=== PATIENT | male | born 1950 | race Caucasian/White ===

== ENCOUNTER 2017-05-24 20:44 | Inpatient (IN) ==
[2017-05-25] MEDS ORDERED: Naloxone 0.4 MG/ML INJ IVP PRN ×2 (00:15)
[2017-05-25] MEDS ORDERED: Ondansetron 4 MG/2 ML VIAL IVP PRN (00:15)
--- NOTE | 2017-05-25 00:39 | Internal Med History&Physical ---
<Ty Vazquez - Last Filed: 05/25/17 01:27> Date of Encounter: 05/25/17 Time of Encounter: 00:35 Assessment and Plan (1) Abdominal pain Current visit: Yes Status: Acute RUQ and epigastric abdominal pain. Likely secondary to biliary colic caused by cholelithiasis. Attempting to obtain CT images from [facility]. US gallbladder pending to determine pericholic fluid and/or cholecystitis. Empiric clindamycin and flagy. NPO on mIVF and protonix. General surgery consulted. Qualifiers: Abdominal location: right upper quadrant Qualified Code(s): R10.11 - Right upper quadrant pain (2) Cholelithiasis Current visit: Yes Status: Acute Per CT report from [facility]. Plan as above. Qualifiers: Cholelithiasis location: gallbladder Cholecystitis acuity: unspecified acuity Qualified Code(s): K80.01 - Calculus of gallbladder with acute cholecystitis with obstruction (3) Biliary colic Current visit: Yes Status: Acute Likely secondary to cholelithiasis. Plan as above. Internal Medicine - H&P: HPI Admitted From: Hospital to Hospital Transfer History of present illness: Mr. Dotson is a 66 year old male, presents from [facility] emergency department for continued evaluation of abdominal pain. Onset 8 months ago and intermittent sharp stabbing located in the epigastrum and sometimes right upper abdominal quadrant. Worse with certain meals...notable milk. Patient just finished a [employer] [place] and his symptoms have been constant for the past week. Asociated with nausea, anorexia. He was evaluated by the cruise ship physician and treated for UTI (discolored urine, no urinary symptoms) with IV levaquin x2 days with PO levaquin thereafter. He also received opioid analgesia on the cruise ship. No vomiting, diarrhea, constipation, melena, hematochezia, urinary symptoms. No chest pain, palpitations, dyspnea, diaphoresis, unusual back pain, cough. No fever or chills. No past abdominal surgical history. No hx CAD or ACS. PMH: Hypertension, chronic back pain. Internal Medicine - H&P: Meds Amlodipine Besylate/Benazepril [Lotrel 10-20 mg Capsule] 1 each PO DAILY [History] Meloxicam 15 mg PO DAILY 05/25/17 [History] Omeprazole [PriLOSEC] 20 mg PO DAILY 05/25/17 [History] 3 Allergy/AdvReac Type Severity Reaction Status Date / Time Penicillins Allergy Mild Rash Verified 05/25/17 00:38 All Systems PM: A 10-system review of systems was performed and is negative for pertinent findings except as documented above in the HPI. - Constitutional Constitutional: anorexia, no chills, no fatigue, no fever(s), no lethargy, no malaise - Cardiovascular Cardiovascular ROS IM: no chest pain, no diaphoresis, no dyspnea, no edema, no lightheadedness, no palpitations - Respiratory Respiratory: no cough, no dyspnea, no hemoptysis, no wheezing, no pain on inspiration, no pain with cough - Gastrointestinal Gastrointestinal: abdominal pain, nausea, no belching, no bloating, no change in bowel habits, no change in stool character, no coffee ground emesis, no constipation, no cramping, no diarrhea, no hematochezia, no loose stools, no vomiting - Genitourinary Genitourinary ROS male: no difficulty urinating, no dysuria, no flank pain, no urinary frequency, no urinary hesitancy, no urinary urgency - Musculoskeletal Musculoskeletal ROS IM: back pain (chronic), no muscle weakness, no numbness, no tingling - Integumentary Integumentary IM: no unusual bruising - Neurological Neurological ROS: no abnormal gait - Constitutional Vitals: Temp Pulse Resp BP Pulse Ox 98.6 F 97 16 131/97 96 05/24/17 23:17 05/24/17 23:17 05/24/17 23:17 05/24/17 23:17 05/24/17 23:17 General appearance: Present: A&O X 3, pleasant, no acute distress, obese - Head Head exam: Present: normal inspection - Eye Eye exam: Present: EOMI, normal appearance, PERRL, sclera anicteric - ENT ENT exam: Present: mucous membranes moist - Neck Neck exam general surgery: Present: normal inspection, supple - Respiratory Respiratory exam: Present: CTAB. Absent: accessory muscle use, respiratory distress, wheezes - Cardiovascular Cardiovascular exam: Present: RRR. Absent: clicks, diastolic murmur, gallop, rubs, systolic murmur - GI/Abdominal GI/Abdominal exam: Present: normal bowel sounds, soft, tenderness. Absent: firm , guarding, rebound Additional comments: RUQ and epigastrum - Expanded GI/Abdominal Exam GI/Abdominal exam expanded: Absent: Pop's sign, Rovsing's sign, tenderness at McBurney's Point - Extremities Exam Extremities exam: Present: normal capillary refill - Neurological Exam Neurological exam: Present: alert, normal gait, oriented X3, no focal deficits. Absent: facial droop - Psychiatric Psychiatric exam: Present: normal affect, normal mood Internal Med - H&P Results - Labs CBC & Chem 7: 05/25/17 00:39 05/25/17 00:39 Labs: Per documentation from [facility]: CT report of abd/pelvis without IV contrast: "Pulmonary granulomatous scarring." (on lower thorax.) "There is cholelithiasis. It is difficult to determine if ther emay be edema surrounding the gallbladder. Clinical correlation is recommended as to whether the patient might benefit from further evaluation with ultrasound. No ductal dilation." "There is mild bilateral perinephric stranding which is nonspecific. No obstructing stones." "There are degenerative changes of the spine. No acute fracture. No dislocation. " "There is a fat containing umbilical hernia." (attempting to obtain actual CT images) Serum hematology: WBC 15.1 Hgb 13.5 Hct 39.3 PLT 277 Serum chemistry: Na 135 K 3.4 Cl 98 BUN 21 Cr 1.47 eGFR 48.17 Hepatic panel: Bili total 1.2 Bili direct 0.7 Protein total 6.5 albumin 2.7 alk phosphatase 168 AST 60 ALT 75 UA: pH 5.5 specific gravity 1.020 Glu neg Ketones trace Biliruben moderate blood trace urobilinogen 4.0 nitrites neg leuk esterase neg cloudy yellow WBC 3-5 RBC 3-5 epithelial 0-2 bacteria 1+ Urine tox screen: cannabinoids neg phencyclidine neg cocaine neg methamphetaime neg opiates pos amphetamines neg benzodiazepines neg TCA neg methadone neg barbiturates neg oxycodone neg propoxyphene neg Influenza screen: Flu A&B (-) <Antonio Araujo P - Last Filed: 05/25/17 03:03> Date of Encounter: 05/25/17 Internal Medicine - H&P: HPI History of present illness: Mr. Dotson is a 66 year old male All Systems PM: A 10-system review of systems was performed and is negative for pertinent findings except as documented above in the HPI. - Constitutional Vitals: Temp Pulse Resp BP Pulse Ox 98.6 F 97 16 131/97 96 05/24/17 23:17 05/24/17 23:17 05/24/17 23:17 05/24/17 23:17 05/24/17 23:17 Internal Med - H&P Results - Labs CBC & Chem 7: 05/25/17 00:39 05/25/17 00:39 Labs: Short CBC 05/25/17 Range/Units 00:39 WBC 19.3 H (4.3-11.1) K/mcL Hgb 11.3 L (12.9-16.9) g/dL Hct 34.1 L (37.5-50.1) % Plt Count 249 (140-400) K/mcL Neutrophils # 16.5 H (1.6-8.9) K/mcL BMP 05/25/17 00:39 Sodium 134 L Potassium 3.8 Chloride 105 Carbon Dioxide 21 L BUN 18 Creatinine 1.13 Glucose 114 H Calcium 8.2 L Liver Function 05/25/17 Range/Units 00:39 Total Bilirubin 0.9 (0.3-1.0) mg/dL Direct Bilirubin 0.4 H (0.0-0.2) mg/dL AST 42 H (13-39) Units/L ALT 50 (7-52) Units/L Alkaline Phosphatase 115 H (34-104) Units/L Albumin 2.9 L (3.5-5.7) g/dL - Attending Attestation I examined this patient and my medical decision-making was reviewed with the Resident Physician. I agree with the documented findings, disposition and treatment plan as described except to the extent set forth below. I agree with plan presented by resident Spoke with Dr Garcia ( surgery) Need CT scan of abdomen on CD to evaluate.
[2017-05-25 01:01] LABS: Basophils # 0.1 K/mcL (0.0-0.2); Basophils % 0.3 %; Eosinophils % 0.1 %; Hematocrit 34.1 % (37.5-50.1); Hemoglobin 11.3 g/dL (12.9-16.9); Immature Granulocytes % 0.8 % (0-4); Lymphocytes # 1.1 K/mcL (0.6-4.6); Lymphocytes % 5.6 %; Mean Corpuscular HGB Conc 33.1 g/dL (31.6-35.5); Mean Corpuscular Hemoglobin 28.8 pg (28.0-33.3); Monocytes # 1.6 K/mcL (0.0-1.3); Monocytes % 8.1 %; Neutrophils # 16.5 K/mcL (1.6-8.9); Platelet Count 249 K/mcL (140-400); Red Blood Count 3.92 M/mcL (4.19-5.50); Red Cell Distribution Width 13.6 % (11.5-14.5); Segmented Neutrophils % 85.1 %
[2017-05-25 01:06] LABS: INR 1.5; Prothrombin Time 16.3 Seconds (9.4-12.1)
[2017-05-25] MEDS: 0.9 % Sodium Chloride w KCl 20 MEQ/1,000 ML MLS IVC SCH ×2 (01:07→09:31)
[2017-05-25 01:16] LABS: Alanine Aminotransferase 50 Units/L (7-52); Albumin 2.9 g/dL (3.5-5.7); Albumin/Globulin Ratio 0.9 (1.1-2.2); Alkaline Phosphatase 115 Units/L (34-104); Amylase 17 Units/L (29-103); Aspartate Amino Transferase 42 Units/L (13-39); BUN/Creatinine Ratio 16 (6-26); Bilirubin,Direct 0.4 mg/dL (0.0-0.2); Bilirubin,Indirect 0.5 mg/dL (0.0-1.2); Bilirubin,Total 0.9 mg/dL (0.3-1.0); Blood Urea Nitrogen 18 mg/dL (8-23); C-Reactive Protein 263 mg/L (Less than 10); Calcium 8.2 mg/dL (8.6-10.3); Carbon Dioxide 21 mEq/L (23-29); Chloride 105 mEq/L (98-107); Globulin 3.1 g/dL (2.4-3.5); Glucose 114 mg/dL (70-105); Lipase 6 Units/L (11-82); Magnesium 1.7 mg/dL (1.6-2.6); Osmolality,Calculated 281 (280-300); Potassium 3.8 mEq/L (3.5-5.1); Sodium 134 mEq/L (136-145); eGFR For African Americans > 60 (> 60); eGFR For Non-African Americans > 60 (> 60)
[2017-05-25] MEDS: MetroNIDAZOLE 500 MG/100 ML 500 MG/100 ML BAG IVPB SCH ×3 (08:44→23:33)
[2017-05-25] MEDS: Pantoprazole 40 MG VIAL IVP SCH (08:44)
[2017-05-25] MEDS: OXYCODONE Oral CONC 10 MG/0.5 ML ORAL.SYG SL PRN (10:10)
[2017-05-25 12:09] LABS: % Iron Saturation 14 % (20-55); Iron 28 mcg/dL (65-175); Transferrin 141 mg/dL (203-362)
--- NOTE | 2017-05-25 13:48 | General Surgery Consult Note ---
Date of Encounter: 05/25/17 Time of Encounter: 13:45 Assessment and Plan (1) Abdominal pain Current Visit: Yes Status: Acute 66M with abdominal pain that sounds consistent with biliary colic; HDS NPO IVF abd US pending results will determine need for cholecystectomy; Qualifiers: Abdominal location: right upper quadrant Qualified Code(s): R10.11 - Right upper quadrant pain History of Present Illness Consult date: 05/25/17 Reason for consult: abdominal pain Requesting physician: Antonio Araujo History of present illness: 66M h/o HTN who presents with post prandial RUQ pain with associated nausea, vomiting, anorexia. He states the pain has been on going, but over the last week, while on a cruise, his pain has gotten worse. It was originally localized to the epigastric region after eating meals that are greasy, meat and starched based with fatty substance. He stated that it later radiated to his Right side and back. He also reports temperatures as high as 102. He was transferred from an OSH for evaluation at [place]. Past Med Surg Social Fam HX - Past Medical History Medical history: GERD, hypertension Psychiatric history: no psych history - Past Surgical History Surgical History: arthroscopy, orthopedic, other - Social History Smoking Status: Never smoker Smokeless Tobacco Status: No Alcohol use: none Drug use: none - Additional Family History Additional family history: non contributory Medications and Allergies Amlodipine Besylate/Benazepril [Lotrel 10-20 mg Capsule] 1 cap PO DAILY [History] Meloxicam 15 mg PO DAILY 05/25/17 [History] Omeprazole [PriLOSEC] 20 mg PO DAILY 05/25/17 [History] 3 Allergy/AdvReac Type Severity Reaction Status Date / Time Penicillins Allergy Mild Rash Verified 05/25/17 00:38 Review of Systems All systems PM: A 10-system review of systems was performed and is negative for pertinent findings except as documented above in the HPI. General Surgery Exam Initial Vital Signs Temp Pulse Resp BP Pulse Ox 98.6 F 97 16 131/97 96 05/24/17 23:17 05/24/17 23:17 05/24/17 23:17 05/24/17 23:17 05/24/17 23:17 - General physical appearance no distress - Eyes other (no scleral icterus) - ENT normocephalic - Neck no lymphadectomy - Respiratory normal expansion, normal respiratory effort - Cardiovascular Cardiovascular exam: Present: RRR - Abdomen Abdomen general surgery: Present: soft, non tender - Integumentary Integumentary general surgery: Present: warm and dry - Neurologic Present: CN 2-12 grossly intact - Psychiatric Psychiatric general surgery: Present: A&Ox3 Exam Initial Vital Signs Temp Pulse Resp BP Pulse Ox 98.6 F 97 16 131/97 96 05/24/17 23:17 05/24/17 23:17 05/24/17 23:17 05/24/17 23:17 05/24/17 23:17 Results - Labs 05/25/17 00:39 05/25/17 00:39 Abnormal lab results WBC 19.3 K/mcL (4.3-11.1) H 05/25/17 00:39 RBC 3.92 M/mcL (4.19-5.50) L 05/25/17 00:39 Hgb 11.3 g/dL (12.9-16.9) L 05/25/17 00:39 Hct 34.1 % (37.5-50.1) L 05/25/17 00:39 Neutrophils # 16.5 K/mcL (1.6-8.9) H 05/25/17 00:39 Monocytes # 1.6 K/mcL (0.0-1.3) H 05/25/17 00:39 PT 16.3 Seconds (9.4-12.1) H 05/25/17 00:39 Sodium 134 mEq/L (136-145) L 05/25/17 00:39 Carbon Dioxide 21 mEq/L (23-29) L 05/25/17 00:39 Glucose 114 mg/dL (70-105) H 05/25/17 00:39 Calcium 8.2 mg/dL (8.6-10.3) L 05/25/17 00:39 Iron 28 mcg/dL (65-175) L 05/25/17 09:16 % Saturation 14 % (20-55) L 05/25/17 09:16 Transferrin 141 mg/dL (203-362) L 05/25/17 09:16 Direct Bilirubin 0.4 mg/dL (0.0-0.2) H 05/25/17 00:39 AST 42 Units/L (13-39) H 05/25/17 00:39 Alkaline Phosphatase 115 Units/L (34-104) H 05/25/17 00:39 C-Reactive Protein 263 mg/L (Less than 10) H 05/25/17 00:39 Serum Total Protein 6.0 g/dL (6.4-8.9) L 05/25/17 00:39 Albumin 2.9 g/dL (3.5-5.7) L 05/25/17 00:39 Albumin/Globulin Ratio 0.9 (1.1-2.2) L 05/25/17 00:39 Amylase 17 Units/L (29-103) L 05/25/17 00:39 Lipase 6 Units/L (11-82) L 05/25/17 00:39 Diabetes panel 05/25/17 Range/Units 00:39 Sodium 134 L (136-145) mEq/L Potassium 3.8 (3.5-5.1) mEq/L Chloride 105 (98-107) mEq/L Carbon Dioxide 21 L (23-29) mEq/L BUN 18 (8-23) mg/dL Creatinine 1.13 (0.70-1.30) mg/dL Glucose 114 H (70-105) mg/dL Calcium 8.2 L (8.6-10.3) mg/dL AST 42 H (13-39) Units/L ALT 50 (7-52) Units/L Alkaline Phosphatase 115 H (34-104) Units/L Albumin 2.9 L (3.5-5.7) g/dL Calcium panel 05/25/17 Range/Units 00:39 Calcium 8.2 L (8.6-10.3) mg/dL Albumin 2.9 L (3.5-5.7) g/dL Pituitary panel 05/25/17 Range/Units 00:39 Sodium 134 L (136-145) mEq/L Potassium 3.8 (3.5-5.1) mEq/L Chloride 105 (98-107) mEq/L Carbon Dioxide 21 L (23-29) mEq/L BUN 18 (8-23) mg/dL Creatinine 1.13 (0.70-1.30) mg/dL Glucose 114 H (70-105) mg/dL Calcium 8.2 L (8.6-10.3) mg/dL Adrenal panel 05/25/17 Range/Units 00:39 Sodium 134 L (136-145) mEq/L Potassium 3.8 (3.5-5.1) mEq/L Chloride 105 (98-107) mEq/L Carbon Dioxide 21 L (23-29) mEq/L BUN 18 (8-23) mg/dL Creatinine 1.13 (0.70-1.30) mg/dL Glucose 114 H (70-105) mg/dL Calcium 8.2 L (8.6-10.3) mg/dL Total Bilirubin 0.9 (0.3-1.0) mg/dL AST 42 H (13-39) Units/L ALT 50 (7-52) Units/L Alkaline Phosphatase 115 H (34-104) Units/L Albumin 2.9 L (3.5-5.7) g/dL All other labs normal. Consult Discharge Plan - Plan Referrals: Lissette Aguirre [Primary Care Provider] - Irene Howe DO [Family Provider] -
[2017-05-25 13:51] LABS: Bilirubin,Urine Negative (Negative); Blood,Urine Small (Negative); Clarity,Urine Clear (Clear); Color,Urine Yellow (Yellow); Glucose,Urine (UA) Normal (Normal); Ketones,Urine Negative (Negative); Leukocyte Esterase,Urine Negative (Negative); Nitrite,Urine Negative (Negative); Protein,Urine Trace mg/dL (Neg-Trace); Specific Gravity,Urine 1.024 (1.010-1.025); Urobilinogen,Urine Normal (Normal)
[2017-05-25 13:56] LABS: Bacteria,Urine None Seen per hpf (None-Few); Hyaline Casts,Urine None Seen per lpf (None-Few); RBC,Urine 15-30 per hpf (0-3); Squamous Epithelial Cell,Urine Many per lpf (None-Few)
--- NOTE | 2017-05-25 16:54 | Event Note ---
Date of Encounter: 05/25/17 Time of Encounter: 11:00 Patient presented from outside hospital with abdominal pain found to have cholelithiasis Surgery consulted with recommendations for right upper quadrant ultrasound and CT of the abdomen to rule out cholecystitis and need for cholecystectomy
[2017-05-25] MEDS: *HR* Heparin 5,000 UNIT/ML VIAL SQ SCH (20:20)
[2017-05-25] MEDS: Ketorolac 15 MG/ML VIAL IVP PRN (20:24)
[2017-05-25] MEDS: Lisinopril 20 MG TABLET PO SCH (22:26)
[2017-05-25] MEDS: amLODIPine 5 MG TABLET PO SCH (22:26)
[2017-05-26] MEDS: Acetaminophen 325 MG TABLET PO PRN ×2 (03:58→21:09)
[2017-05-26] MEDS: *HR* Heparin 5,000 UNIT/ML VIAL SQ SCH ×3 (05:18→21:09)
[2017-05-26] MEDS: Pantoprazole 40 MG VIAL IVP SCH (07:41)
[2017-05-26] MEDS: MetroNIDAZOLE 500 MG/100 ML 500 MG/100 ML BAG IVPB SCH ×2 (07:41→17:05)
--- NOTE | 2017-05-26 08:06 | General Surgery Progress Note ---
Date of Encounter: 05/26/17 Time of Encounter: 08:03 - Assessment and Plan (1) Abdominal pain Current Visit: Yes Status: Acute 66M with abdominal pain that sounds consistent with biliary colic; HDS; hepatic lesion identified post to gallbladder on imaging diet per primary team; diet as tolerated from surgical standpont IVF: SLIV when tolerating PO cont with abx recommend obtaining reads from CT scan MRI for patient to evaluate liver no acute surgery at present Qualifiers: Abdominal location: right upper quadrant Qualified Code(s): R10.11 - Right upper quadrant pain Subjective Patient reports: no new complaints, feels better, still having pain, pain is less, tolerating liquids well, other (fever overnight; ) Objective Vital Signs - Last 8 Hours Temp Pulse Resp BP Pulse Ox 05/26/17 08:03 98.0 F 82 18 145/89 95 05/26/17 05:59 99.9 F H 05/26/17 03:37 102.1 F H 05/26/17 03:27 102.7 F H 100 17 157/90 94 Intake and Output 05/25/17 05/26/17 05/26/17 23:59 07:59 15:59 Intake Total 1300 / 1300 100 / 100 Output Total 200 / 200 Balance 1100 / 1100 100 / 100 Intake: IV Fluids 1300 / 1300 100 / 100 KCl 20 mEq in 0.9% Sodium 1000 / 1000 Chloride 20 meq In 1,000 ml @ 125 mls/hr IVC .Q8H KATHY Rx#: [id number] Cipro Premix 400 MG/200 ML 400 200 / 200 mg In 200 ml @ 200 mls/hr IVPB Q12HR KATHY Rx#:[id number] Flagyl Premix 500 MG/100 ML 500 100 / 100 100 / 100 mg In 100 ml @ 100 mls/hr IVPB Q8HR KATHY Rx#:[id number] Oral 0 / 0 Output: Urine 200 / 200 Other: Meal Dinner Percent of Meal Consumed 100% - General physical appearance no distress - Eyes other (no scleral icterus) - Respiratory normal expansion, normal respiratory effort - Cardiovascular Cardiovascular exam: Present: RRR - Abdomen Abdomen: Present: soft, tender (decreased tenderness per patient; no tenderness on my exam) - Neurologic CN 2-12 grossly intact - Psychiatric oriented to time, oriented to person, oriented to place - Labs 05/25/17 00:39 02/18/18 00:39 - Imaging CT scan - abdomen: report reviewed, image reviewed CT Scan - head: report reviewed, image reviewed US - abdomen: report reviewed, image reviewed (all imaging reviewed and interpreted by me in combination with radiology reads) - VTE Documentation of Mechanical Device: Graduated compression elastic hosiery Consult Discharge Plan - Plan Referrals: Lissette Aguirre [Primary Care Provider] - Irene Howe DO [Family Provider] -
[2017-05-26] MEDS ORDERED: *HR* Midazolam HCl 2 MG/2 ML VIAL IVP ONE (14:44)
[2017-05-26] MEDS ORDERED: *HR* FentaNYL (PF) 100 MCG/2 ML VIAL IVP ONE (14:44)
[2017-05-26] MEDS ORDERED: 0.9 % Sodium Chloride 500 ML ONE (15:10)
--- NOTE | 2017-05-26 15:10 | Internal Med Progress Note ---
Date of Encounter: 05/26/17 Time of Encounter: 07:55 - Assessment and plan (1) Abdominal pain Current Visit: Yes Status: Acute Assessment and plan: Right upper quadrant and epigastric abdominal pain for several weeks. Patient recently returned from an 8 day cruise where he had abdominal pain and was ill on his trip. Patient presented to [facility] for abdominal pain and was transferred here for continued evaluation. Gallbladder ultrasound showed a 6.2 cm complex lesion on the liver, MRI was ordered as cholelithiasis with gallbladder wall thickening gallbladder sludge, there is focal wall defect which communicates with a complex collection within the liver and also showed trace ascites. Pt has been taken to IR for drain placement. He is on Flagyl 500mg IV TID and Cefepime 2grams IV every 8 hours. Meets sepsis criteria Continue antibiotics and IVF resuscitation PRN Surgery following Monitor labs and VS NPO, advance slowly Stop IV fluids when tolerating PO Qualifiers: Abdominal location: right upper quadrant Qualified Code(s): R10.11 - Right upper quadrant pain (2) Cholelithiasis Current Visit: Yes Status: Acute Assessment and plan: Per CT from outside hospital and MRI. Dr. Ring has evaluated and will follow along Plan as above. Gallbladder Ultrasound 05/25/17 00:00 IMPRESSION: Findings suggestive of calculus cholecystitis, similar to prior CT. Within the liver adjacent to the gallbladder fossa there is a 6.2 cm complex lesion. Findings are poorly evaluated on ultrasound and outside noncontrast CT. This could represent infection secondary to obstruction of an accessory bile duct, marked hyperemia due to cholecystitis, or less likely intrahepatic extension of a gallbladder mass. The area is considered too masslike and mixed in echogenicity to represent focal fatty sparing. Consider MRI with and without contrast for further evaluation. D/ / Yuniel Peña MD / Yuniel Peña MD Interpreting Provider: Yuniel Peña MD Abdomen MRI 05/25/17 18:41 IMPRESSION: 1. Cholelithiasis with gallbladder wall thickening and gallbladder sludge. Findings are nonspecific for acute cholecystitis; however, there is a focal wall defect within the superior aspect of the gallbladder which communicates with a complex 7.4 x 5.6 x 4.6 cm collection within the liver at the junctions of segment VIII and IV. Findings are the compatible with perforated cholecystitis/gallbladder with associated intrahepatic abscess. 2. Subtle heterogeneity of segment VIII within liver distal to the collection, likely a transhepatic intensity difference. Findings could be also infectious or inflammatory in etiology. 3. Trace ascites. Results were called by Dr. Jeanie Romero MD to Lissette Obrien on 05/26/2017 at 11:48. D/ / 05/26/2017 12:00:27 Jeanie Romero MD / [email or web address] Interpreting Provider: Jeanie Romero MD Qualifiers: Cholelithiasis location: gallbladder Cholecystitis acuity: unspecified acuity Qualified Code(s): K80.01 - Calculus of gallbladder with acute cholecystitis with obstruction (3) Leukocytosis Current Visit: Yes Status: Acute Assessment and plan: Leukocytosis due to intrahepatic abscess and gallbladder wall defect. Continue to monitor labs and vital signs Continue current IV antibiotic regimen. Qualifiers: Leukocytosis type: unspecified Qualified Code(s): D72.829 - Elevated white blood cell count, unspecified (4) Sepsis Current Visit: Yes Status: Acute Assessment and plan: Patient presented with leukocytosis, unknown source of infection liver abscess, patient has been febrile with MAXIMUM TEMPERATURE 102.7, tachycardia. Fever and tachycardia have resolved. Patient is being treated with cefepime 2 g every 8 hours and Flagyl 500 mg IV every 8 hours. Blood cultures and lactic were not drawn in the ER, patient has been given IV antibiotics. Lactic is ordered and pending. Patient has been normotensive and has been getting IV fluids at 125 mL's per hour. Continue to monitor vital signs and patient condition Continue IV antibiotics as above Lactic ordered and pending IV fluid resuscitation when necessary Qualifiers: Sepsis type: sepsis due to unspecified organism Qualified Code(s): A41.9 - Sepsis, unspecified organism (5) DVT prophylaxis Current Visit: Yes Status: Acute Assessment and plan: Heparin subcutaneous every 8 hours - Time Spent With Patient less than 15 minutes - Subjective Interval history: Patient was assessed and 0755 AM, at bedside. Patient reported some nausea , pain was controlled. Abdomen is rounded and tender to palpation. Patient was evaluated by surgery, I discussed MRI results with patient, he has been taken to IR for drain placement. He denies chest pain or shortness of breath. He denies headache, vomiting or diarrhea. - Constitutional Vitals: Temp Pulse Resp BP Pulse Ox 98.6 F 89 20 167/81 98 05/26/17 11:55 05/26/17 11:55 05/26/17 11:55 05/26/17 11:55 05/26/17 11:55 General appearance: Present: cooperative, A&O X 3, pleasant, no acute distress, obese, answers questions appropriately - Head Head exam: Present: atraumatic, normal inspection, normocephalic - Eye Eye exam: Present: normal appearance, conjuntiva pink, sclera anicteric - Neck Neck exam general surgery: Present: normal inspection, supple, trachea midline. Absent: lymphadenopathy, tenderness - Respiratory Respiratory exam: Present: CTAB. Absent: accessory muscle use, decreased breath sounds, rales, respiratory distress, rhonchi, wheezes - Cardiovascular Cardiovascular exam: Present: RRR, +S1, +S2. Absent: diastolic murmur, gallop, rubs, systolic murmur - GI/Abdominal GI/Abdominal exam: Present: diminished bowel sounds, distended, normal bowel sounds, soft, tenderness - Extremities Exam Extremities exam: Present: normal capillary refill, normal inspection, warm, radial pulses palpable and symmetrical. Absent: calf tenderness, cyanotic, pedal edema, tenderness - Neurological Exam Neurological exam: Present: alert, oriented X3, no focal deficits. Absent: facial droop, speech deficit - Skin Skin exam: Present: dry, intact, normal color, warm. Absent: rash Internal Medicine: Result - Labs CBC & Chem 7: 05/25/17 00:39 05/25/17 00:39 - ABG Interpretation ABG results: PT/INR, D-dimer PT 16.3 Seconds (9.4-12.1) H 05/25/17 00:39 - Impressions Impressions Gallbladder Ultrasound 05/25/17 00:00 IMPRESSION: Findings suggestive of calculus cholecystitis, similar to prior CT. Within the liver adjacent to the gallbladder fossa there is a 6.2 cm complex lesion. Findings are poorly evaluated on ultrasound and outside noncontrast CT. This could represent infection secondary to obstruction of an accessory bile duct, marked hyperemia due to cholecystitis, or less likely intrahepatic extension of a gallbladder mass. The area is considered too masslike and mixed in echogenicity to represent focal fatty sparing. Consider MRI with and without contrast for further evaluation. D/ / Yuniel Peña MD / Yuniel Peña MD Interpreting Provider: Yuniel Peña MD Abdomen MRI 05/25/17 18:41 IMPRESSION: 1. Cholelithiasis with gallbladder wall thickening and gallbladder sludge. Findings are nonspecific for acute cholecystitis; however, there is a focal wall defect within the superior aspect of the gallbladder which communicates with a complex 7.4 x 5.6 x 4.6 cm collection within the liver at the junctions of segment VIII and IV. Findings are the compatible with perforated cholecystitis/gallbladder with associated intrahepatic abscess. 2. Subtle heterogeneity of segment VIII within liver distal to the collection, likely a transhepatic intensity difference. Findings could be also infectious or inflammatory in etiology. 3. Trace ascites. Results were called by Dr. Jeanie Romero MD to Lissette Obrien on 05/26/2017 at 11:48. D/ / 05/26/2017 12:00:27 Jeanie Romero MD / [email or web address] Interpreting Provider: Jeanie Romero MD - VTE Documentation of Mechanical Device: Graduated compression elastic hosiery Consult Discharge Plan - Plan Referrals: Lissette Aguirre [Primary Care Provider] - Irene Howe DO [Family Provider] -
--- NOTE | 2017-05-26 15:58 | Pre-Sedation Evaluation ---
Pre-sedation evaluation - Pre-sedation checklist Date of procedure: 05/26/17 Procedure: drain Recent Vitals: Last Vital Signs Temp 98.6 F 05/26/17 11:55 Pulse 87 05/26/17 15:37 Resp 18 05/26/17 15:37 BP 162/89 05/26/17 15:37 Pulse Ox 99 05/26/17 15:37 H&P (including ROS) documented in medical record: Yes Previous reaction to sedatives/anesthetics: No Dietary Status: NPO after Midnight Airway Assessment: Patient can open mouth completely, TMJ function normal, Micrognathia (under-bite, receding chin) absent, Neck with adequate range of motion ASA Classification *see protocol: CLASS II-Mild systemic disease Plan of Care: Pt appropriate candidate for procedure/moderate/conscious sedation , Risks/benefits of procedure/sedation discussed w/ patient/family, If not NPO; Risk of intake outweiged by necessity to perform procedure
--- NOTE | 2017-05-26 15:59 | IR Procedure Note ---
Date of procedure: 05/26/17 Consent Obtained: Verbal consent, Written consent Timeout: Correct patient and procedure verified, Correct site verified, Time out performed, Skin prep completed Local anesthetic: Lidocaine 1% Indications: hepatic abscess Procedure Performed: 10F drain placement Was there an carpenter's assistant present: No Site/Technique: right hepatic lobe Results/Findings: 70 cc purulent fluid aspirated Estimated blood loss (cc): 1 Complications: None; Tolerated procedure well Post Procedure Treatment Plan: GLORIA bulb drainage with 10 cc flushes q shift Specimen: 70 cc purulent fluid
[2017-05-26] MEDS: OXYCODONE Oral CONC 10 MG/0.5 ML ORAL.SYG SL PRN ×2 (16:07→20:20)
[2017-05-26] MEDS: Cefepime HCl 2,000 MG in Water for inj. (sterile) 20 ML 20 ML IVP SCH (17:05)
[2017-05-26] MEDS ORDERED: Acetaminophen 650 MG RECTAL SUPP RC PRN (20:21)
[2017-05-26] MEDS: Lisinopril 20 MG TABLET PO SCH (21:10)
[2017-05-26] MEDS: amLODIPine 5 MG TABLET PO SCH (21:10)
[2017-05-27] MEDS: MetroNIDAZOLE 500 MG/100 ML 500 MG/100 ML BAG IVPB SCH ×3 (00:12→16:08)
[2017-05-27] MEDS: Cefepime HCl 2,000 MG in Water for inj. (sterile) 20 ML 20 ML IVP SCH ×3 (00:13→16:07)
[2017-05-27] MEDS: Acetaminophen 325 MG TABLET PO PRN (01:22)
[2017-05-27 04:17] LABS: Basophils % 0.2 %; Eosinophils % 0.2 %; Hematocrit 33.8 % (37.5-50.1); Hemoglobin 11.2 g/dL (12.9-16.9); Immature Granulocytes % 1.2 % (0-4); Lymphocytes # 1.5 K/mcL (0.6-4.6); Lymphocytes % 9.5 %; Mean Corpuscular HGB Conc 33.1 g/dL (31.6-35.5); Mean Corpuscular Hemoglobin 28.9 pg (28.0-33.3); Mean Corpuscular Volume 87.1 fL (83.0-100.0); Monocytes # 1.1 K/mcL (0.0-1.3); Monocytes % 6.8 %; Neutrophils # 12.6 K/mcL (1.6-8.9); Platelet Count 259 K/mcL (140-400); Red Blood Count 3.88 M/mcL (4.19-5.50); Red Cell Distribution Width 13.7 % (11.5-14.5); Segmented Neutrophils % 82.1 %
[2017-05-27 04:41] LABS: BUN/Creatinine Ratio 13 (6-26); Blood Urea Nitrogen 13 mg/dL (8-23); Calcium 8.2 mg/dL (8.6-10.3); Carbon Dioxide 23 mEq/L (23-29); Chloride 104 mEq/L (98-107); Glucose 103 mg/dL (70-105); Osmolality,Calculated 278 (280-300); Potassium 3.6 mEq/L (3.5-5.1); Sodium 134 mEq/L (136-145); eGFR For African Americans > 60 (> 60); eGFR For Non-African Americans > 60 (> 60)
[2017-05-27] MEDS: *HR* Heparin 5,000 UNIT/ML VIAL SQ SCH ×3 (05:33→20:38)
[2017-05-27] MEDS: OXYCODONE Oral CONC 10 MG/0.5 ML ORAL.SYG SL PRN ×2 (05:39→10:41)
[2017-05-27] MEDS: Pantoprazole 40 MG VIAL IVP SCH (08:44)
--- NOTE | 2017-05-27 10:44 | General Surgery Progress Note ---
Date of Encounter: 05/27/17 Time of Encounter: 09:15 - Assessment and Plan (1) Abdominal pain Current Visit: Yes Status: Acute 66M with abdominal pain; imaging revealed liver abscess 2/2 cholecystitis with perforation; now s.p IR drain in liver (80cc of purulent drainage); afebrile for last 12 hours, WBC trending down NPO plan for cholecystostomy tube after cholecystostomy tube placement, will keep overnight with IV abx; okay to start diet after tube placement; if afebrile and WBC continues to trend down, okay for d/c on 05/28 with plans for follow up in clinic in 2 weeks and surgery to be scheduled then will hold off on surgery this admission Qualifiers: Abdominal location: right upper quadrant Qualified Code(s): R10.11 - Right upper quadrant pain Subjective Patient reports: no new complaints, feels better, still having pain, pain is less, afebrile (afebrile for last 12 hours) Objective Vital Signs - Last 8 Hours Temp Pulse Resp BP Pulse Ox 05/27/17 07:48 98.5 F 92 18 149/95 95 05/27/17 07:15 92 05/27/17 03:33 98.9 F 88 14 137/89 94 Intake and Output 05/26/17 05/27/17 05/27/17 23:59 07:59 15:59 Intake Total 360 / 360 120 / 120 120 / 120 Output Total 400 / 400 40 / 40 Balance -40 / -40 120 / 120 80 / 80 Intake: IV Fluids 120 / 120 120 / 120 120 / 120 Maxipime 2,000 MG In Water for 20 20 / 20 inj. (sterile) 20 ML @ 300 mls/ hr IVP Q8HR KATHY Rx#:[id number] Flagyl Premix 500 MG/100 ML 500 100 / 100 100 / 100 100 / 100 mg In 100 ml @ 100 mls/hr IVPB Q8HR KATHY Rx#:[id number] Oral 240 / 240 Output: Urine 400 / 400 Wound Drainage 40 / 40 RUQ 40 / 40 Other: Weight 103.644 kg Patient Weight 05/27/17 23:59 Weight 103.644 kg - General physical appearance no distress - Eyes normal ocular movement - Respiratory normal expansion, normal respiratory effort - Cardiovascular Cardiovascular exam: Present: RRR - Abdomen Abdomen: Present: soft, tender (decreased tenderness; primarily at drain site) - Neurologic CN 2-12 grossly intact - Psychiatric oriented to time, oriented to person - Labs 05/27/17 03:52 05/27/17 03:52 Diabetes panel 05/27/17 Range/Units 03:52 Sodium 134 L (136-145) mEq/L Potassium 3.6 (3.5-5.1) mEq/L Chloride 104 (98-107) mEq/L Carbon Dioxide 23 (23-29) mEq/L BUN 13 (8-23) mg/dL Creatinine 0.98 (0.70-1.30) mg/dL Glucose 103 (70-105) mg/dL Calcium 8.2 L (8.6-10.3) mg/dL Calcium panel 05/27/17 Range/Units 03:52 Calcium 8.2 L (8.6-10.3) mg/dL Pituitary panel 05/27/17 Range/Units 03:52 Sodium 134 L (136-145) mEq/L Potassium 3.6 (3.5-5.1) mEq/L Chloride 104 (98-107) mEq/L Carbon Dioxide 23 (23-29) mEq/L BUN 13 (8-23) mg/dL Creatinine 0.98 (0.70-1.30) mg/dL Glucose 103 (70-105) mg/dL Calcium 8.2 L (8.6-10.3) mg/dL Adrenal panel 05/27/17 Range/Units 03:52 Sodium 134 L (136-145) mEq/L Potassium 3.6 (3.5-5.1) mEq/L Chloride 104 (98-107) mEq/L Carbon Dioxide 23 (23-29) mEq/L BUN 13 (8-23) mg/dL Creatinine 0.98 (0.70-1.30) mg/dL Glucose 103 (70-105) mg/dL Calcium 8.2 L (8.6-10.3) mg/dL - VTE Documentation of Mechanical Device: Graduated compression elastic hosiery Consult Discharge Plan - Plan Referrals: Lissette Aguirre [Primary Care Provider] - Irene Howe DO [Family Provider] -
[2017-05-27] MEDS ORDERED: *HR* FentaNYL (PF) 100 MCG/2 ML VIAL IVP ONE (11:39)
[2017-05-27] MEDS ORDERED: *HR* Midazolam HCl 2 MG/2 ML VIAL IVP ONE (11:39)
[2017-05-27] MEDS ORDERED: 0.9 % Sodium Chloride 500 ML ONE (11:43)
--- NOTE | 2017-05-27 12:41 | Event Note ---
Date of Encounter: 05/27/17 Time of Encounter: 12:40 IR procedure complete; okay for diet from surgery standpoint; start with CLD; if patient tolerates clears, can advance as tolerated; plan for d/c in AM
--- NOTE | 2017-05-27 15:15 | Internal Med Progress Note ---
Date of Encounter: 05/27/17 Time of Encounter: 11:00 - Assessment and plan (1) Cholelithiasis Current Visit: Yes Status: Acute Assessment and plan: presented with ABD pain. OSH ABD CT showed cholelithiasis with gallbladder wall thickening and gallbladder sludge with a focal wall defect within the superior aspect of the gallbladder which communicates to a collection within the liver. Findings are the compatible with perforated cholecystitis/gallbladder with associated intrahepatic abscess. Evalauted by General Surgery who noted liver abscess 2/2 cholecystitis with perforation. S/p liver abscess drainage on . S/p cholecystostomy tube placement on 05/27/17. If afebrile and WBC continues to trend down okay for discharge on 05/28 with plans for follow-up in clinic in 2 weeks; surgery will be scheduled at that time. Okay for clear liquid diets, advance as tolerated. Qualifiers: Cholelithiasis location: gallbladder Cholecystitis acuity: unspecified acuity Qualified Code(s): K80.01 - Calculus of gallbladder with acute cholecystitis with obstruction (2) Hepatic abscess Current Visit: Yes Status: Acute Assessment and plan: plan as noted above (3) Sepsis Current Visit: Yes Status: Acute Assessment and plan: Patient presented with leukocytosis, 102.7, tachycardia. Lactic acid normal. Blood cultures not drawn in ER. Hemodynamically stable. No hypertension or tachycardia. Afebrile for over 24 hours. Continue IV ATB. Qualifiers: Sepsis type: sepsis due to unspecified organism Qualified Code(s): A41.9 - Sepsis, unspecified organism (4) DVT prophylaxis Current Visit: Yes Status: Acute Assessment and plan: Heparin - Subjective Interval history: Seen and examined at bedside. Patient is new to me. Information obtained from chart review and patient report. Patient says he has some pain at liver drain site; otherwise feels significantly improved. No fevers overnight. Plan is for Colee tubes today. No chest pain, no shortness of breath, no fevers or chills. - Constitutional Vitals: Temp Pulse Resp BP Pulse Ox 98.8 F 105 20 148/86 95 05/27/17 14:43 05/27/17 14:43 05/27/17 14:43 05/27/17 14:43 05/27/17 14:43 General appearance: Present: cooperative, A&O X 3, pleasant, no acute distress, obese, answers questions appropriately - Head Head exam: Present: atraumatic, normocephalic - Eye Eye exam: Present: PERRL, conjuntiva pink, sclera anicteric Pupils: Present: PERRL - Neck Neck exam general surgery: Present: supple, trachea midline. Absent: lymphadenopathy - Respiratory Respiratory exam: Present: CTAB. Absent: accessory muscle use, rales, rhonchi, wheezes - Cardiovascular Cardiovascular exam: Present: RRR, +S1, +S2. Absent: diastolic murmur, gallop, rubs, systolic murmur - GI/Abdominal GI/Abdominal exam: Present: normal bowel sounds, soft, no peritoneal signs. Absent: distended, tenderness Additional comments: ABD GLORIA drain - Extremities Exam Extremities exam: Present: warm, radial pulses palpable and symmetrical. Absent : calf tenderness, cyanotic, pedal edema - Neurological Exam Neurological exam: Present: CN II-XII intact, oriented X3, no focal deficits. Absent: pronater drift, facial droop, speech deficit - Skin Skin exam: Present: dry, intact Internal Medicine: Result - Labs CBC & Chem 7: 05/27/17 03:52 05/27/17 03:52 Labs: Short CBC 05/27/17 Range/Units 03:52 WBC 15.3 H (4.3-11.1) K/mcL Hgb 11.2 L (12.9-16.9) g/dL Hct 33.8 L (37.5-50.1) % Plt Count 259 (140-400) K/mcL Neutrophils # 12.6 H (1.6-8.9) K/mcL BMP 05/27/17 03:52 Sodium 134 L Potassium 3.6 Chloride 104 Carbon Dioxide 23 BUN 13 Creatinine 0.98 Glucose 103 Calcium 8.2 L - ABG Interpretation ABG results: PT/INR, D-dimer PT 16.3 Seconds (9.4-12.1) H 05/25/17 00:39 - Impressions Impressions Liver Abscess Drainage CT 05/26/17 00:00 IMPRESSION: CT-guided placement of a percutaneous drain into a right hepatic lobe abscess. D/ / 05/27/2017 09:21:29 Tavares Souza MD / Rekha Fry Interpreting Provider: Tavares Souza MD Needle Aspiration CT 05/27/17 00:00 IMPRESSION: Successful CT guided placement of cholecystostomy tube. D/ / Deven Rehman MD / Deven Rehman MD Interpreting Provider: Deven Rehman MD - VTE Documentation of Mechanical Device: Graduated compression elastic hosiery Consult Discharge Plan - Plan Referrals: Lissette Aguirre [Primary Care Provider] - Irene Howe DO [Family Provider] -
[2017-05-27] MEDS: Ketorolac 15 MG/ML VIAL IVP PRN (16:32)
[2017-05-27] MEDS: amLODIPine 5 MG TABLET PO SCH (20:38)
[2017-05-27] MEDS: Lisinopril 20 MG TABLET PO SCH (20:38)
[2017-05-28] MEDS: Cefepime HCl 2,000 MG in Water for inj. (sterile) 20 ML 20 ML IVP SCH ×2 (00:27→08:23)
[2017-05-28] MEDS: MetroNIDAZOLE 500 MG/100 ML 500 MG/100 ML BAG IVPB SCH ×2 (00:27→08:23)
[2017-05-28] MEDS: *HR* Heparin 5,000 UNIT/ML VIAL SQ SCH (02:31)
[2017-05-28] MEDS: Ketorolac 15 MG/ML VIAL IVP PRN ×2 (03:21→09:36)
[2017-05-28] MEDS: Pantoprazole 40 MG VIAL IVP SCH (08:23)
[2017-05-28 09:35] LABS: Hemoglobin 11.9 g/dL (12.9-16.9); Mean Corpuscular HGB Conc 33.1 g/dL (31.6-35.5); Mean Corpuscular Hemoglobin 28.9 pg (28.0-33.3); Mean Corpuscular Volume 87.4 fL (83.0-100.0); Mean Platelet Volume 10.1 fL (9.4-12.4); Platelet Count 341 K/mcL (140-400); Red Blood Count 4.12 M/mcL (4.19-5.50); Red Cell Distribution Width 13.8 % (11.5-14.5)
--- NOTE | 2017-05-28 11:00 | Event Note ---
Date of Encounter: 05/28/17 Time of Encounter: 10:30 Patient may discharge to home with drains in place for a surgical standpoint. Follow-up in the surgical office in one week as scheduled with Dr. Garcia. Prescriptions completed for pain control and antibiotics. - Patient Status Disposition: Home, Self-Care Condition: Good Functional capacity at discharge: independent ambulation Overall status at discharge: patient is progressing back to baseline - Discharge Instructions Follow Up With: Lissette Aguirre [Primary Care Provider] - Irene Howe DO [Family Provider] - Zohaib Garcia MD [Non-Partnered Physician] - 06/04/17 3:35 pm (hospital follow -up; discuss surgery) Additional Instructions: Drain care- cleanse around the drains and the shower with soap and water and pat dry, apply a split 4 x 4 gauze and tape to secure. The drains 2-3 times daily and as needed and full. Record outputs on designated drain records and bring to follow-up appointment with Dr. Garcia on 06/04/2017. #1 may shower #2 wash incisions with soap and water and pat dry daily #3 no lifting, pushing, pulling more than 15 pounds until released per surgeon; estimated 07/28/17 #4 no driving until off narcotics for 24 hours and able to safely react in the car #5 may climb stairs - Diet and Activity Activity: other (See additional instructions above) Diet: low fat, low cholesterol
[2017-05-28 11:42] VITALS: BP 145/95
--- NOTE | 2017-05-28 11:51 | Discharge Summary ---
Orders not resulted at time of discharge: Pending orders 05/26/17 15:33 Culture,Anaerobic [RM] Stat Culture,Body Fluid [RM] Stat 05/27/17 12:00 Culture,Anaerobic [RM] Routine Culture,Body Fluid [RM] Routine Date of Encounter: 05/28/17 Time of Encounter: 11:48 - Discharge Diagnosis (1) Cholelithiasis Priority: Primary Status: Acute Comments: presented with ABD pain. OSH ABD CT showed cholelithiasis with gallbladder wall thickening and gallbladder sludge with a focal wall defect within the superior aspect of the gallbladder which communicates to a collection within the liver. Findings are the compatible with perforated cholecystitis/gallbladder with associated intrahepatic abscess. General Surgery noted liver abscess 2/2 cholecystitis with perforation. S/p liver abscess drainage on 05/26/17. S/p cholecystostomy tube placement on 05/27/17. Afebrile for over 24 hours, WBC trending down and tolerating a regular diet area and okay to discharge from general surgery standpoint with follow-up in 2 weeks. Discharge home on [address]. Qualifiers: Cholelithiasis location: gallbladder Cholecystitis acuity: unspecified acuity Qualified Code(s): K80.01 - Calculus of gallbladder with acute cholecystitis with obstruction (2) Hepatic abscess Priority: Primary Status: Acute Comments: plan as noted above (3) Sepsis Priority: Primary Status: Resolved Comments: with leukocytosis, 102.7, tachycardia. Lactic acid normal. Secondary to liver abscess and cholecystitis with perforation. Blood cultures not drawn in ER. Hemodynamically stable. No hypertension or tachycardia. Remained afebrile for over 24 hours. Resolved at time of discharge. Qualifiers: Sepsis type: sepsis due to unspecified organism Qualified Code(s): A41.9 - Sepsis, unspecified organism (4) Hypertension Priority: Secondary Status: Chronic Comments: per hx. BP intermittently elevated while inpatient. Possibly secondary to acute pain. Continue home BP medications. Recommend follow-up with PCP within 1-2 weeks. Qualifiers: Hypertension type: essential hypertension Qualified Code(s): I10 - Essential (primary) hypertension Hospital course: See assessment and plan for hospital course. - Time Spent with Patient Total time spent providing and/or coordinating discharge services: Greater than 30 minutes Specific discharge activities: 36 minutes spent on discharge - Discharge Medications Prescriptions: Ibuprofen [Motrin] 600 mg PO Q8HR PRN #40 tab PRN Reason: Mild Pain Ciprofloxacin [Cipro] 500 mg PO BID #20 tablet Docusate Sodium [Colace] 100 mg PO BID #30 capsule HYDROcodone/Acet 5/325 mg [[place] 5-325 mg] 1 tab PO Q6H PRN 5 Days #20 tab PRN Reason: Severe Pain metroNIDAZOLE [Flagyl] 500 mg PO TID #30 tablet Home Medications: Amlodipine Besylate/Benazepril [Lotrel 10-20 mg Capsule] 1 cap PO DAILY [History] Meloxicam 15 mg PO DAILY 05/25/17 [History] Omeprazole [PriLOSEC] 20 mg PO DAILY 05/25/17 [History] Ciprofloxacin [Cipro] 500 mg PO BID #20 tablet 05/28/17 [Rx] Docusate Sodium [Colace] 100 mg PO BID #30 capsule 05/28/17 [Rx] HYDROcodone/Acet 5/325 mg [[place] 5-325 mg] 1 tab PO Q6H PRN 5 Days #20 tab 05/28 [Rx] Ibuprofen [Motrin] 600 mg PO Q8HR PRN #40 tab 05/28/17 [Rx] metroNIDAZOLE [Flagyl] 500 mg PO TID #30 tablet 05/28/17 [Rx] Allergies/Adverse Reactions: 3 Allergy/AdvReac Type Severity Reaction Status Date / Time Penicillins Allergy Mild Rash Verified 05/25/17 00:38 Date of admission: 05/25/17 03:00 Primary care physician: Lissette Aguirre Consults: 05/25/17 00:30 Consult to Surgery [CONS] Routine Consulting Provider: Surgery [facility] Reason for Consult: TFR from [facility]. RUQ, epigastric pain. CT shows cholecystitis w/stones. US pending. Time Notified: 00:31 Call Completed: No 05/26/17 12:19 Consult to Interventional Radiology [CONS] Stat Consulting Provider: Radiology Interventional Cols Reason for Consult: Possible drain placement; Dr. Garcia has called IR. Awating return call Time Notified: 12:15 Call Completed: Yes 05/27/17 09:50 Consult to Interventional Radiology [CONS] Stat Consulting Provider: Radiology Interventional Cols Reason for Consult: cholecystostomy tube Call Completed: Yes Discharging clinician: Kaye Ascencio Anticipated date of discharge: 05/28/17 - Constitutional Vitals: Temp Pulse Resp BP Pulse Ox 98.4 F 107 22 145/95 94 05/28/17 11:40 05/28/17 11:40 05/28/17 11:40 05/28/17 11:40 05/28/17 11:40 General appearance: Present: cooperative, A&O X 3, pleasant, no acute distress, obese, answers questions appropriately - Head Head exam: Present: atraumatic, normocephalic - Eye Eye exam: Present: PERRL, conjuntiva pink, sclera anicteric Pupils: Present: PERRL - Neck Neck exam general surgery: Present: supple, trachea midline. Absent: lymphadenopathy - Respiratory Respiratory exam: Present: CTAB. Absent: accessory muscle use, rales, rhonchi, wheezes - Cardiovascular Cardiovascular exam: Present: RRR, +S1, +S2. Absent: diastolic murmur, gallop, rubs, systolic murmur - GI/Abdominal GI/Abdominal exam: Present: normal bowel sounds, soft, no peritoneal signs. Absent: distended, tenderness Additional comments: 2 GLORIA drains - Extremities Exam Extremities exam: Present: warm, radial pulses palpable and symmetrical. Absent : calf tenderness, cyanotic, pedal edema - Neurological Exam Neurological exam: Present: CN II-XII intact, oriented X3, no focal deficits. Absent: pronater drift, facial droop, speech deficit - Skin Skin exam: Present: dry, intact - Patient Status Disposition: Home, Self-Care Condition: Good Overall status at discharge: patient is progressing back to baseline - Discharge Instructions Instructions: Liver Abscess (GEN), Cholecystitis (DC) Follow Up With: Lissette Aguirre [Primary Care Provider] - Zohaib Garcia MD [Non-Partnered Physician] - 06/04/17 3:35 pm (hospital follow -up; discuss surgery) Irene Howe DO [Family Provider] - (Please call for follow-up appointment within 1 week) Additional Instructions: Drain care- cleanse around the drains and the shower with soap and water and pat dry, apply a split 4 x 4 gauze and tape to secure. The drains 2-3 times daily and as needed and full. Record outputs on designated drain records and bring to follow-up appointment with Dr. Garcia on 06/04/2017. #1 may shower #2 wash incisions with soap and water and pat dry daily #3 no lifting, pushing, pulling more than 15 pounds until released per surgeon; estimated 07/28/17 #4 no driving until off narcotics for 24 hours and able to safely react in the car #5 may climb stairs - Diet and Activity Activity: increase activity as tolerated Diet: low fat, low cholesterol - VTE Documentation of Mechanical Device: Graduated compression elastic hosiery
== END 2017-05-28 12:16 | disposition home or self-care (01) | DRG 871 ==
LOC: 2NNU → 3BNU 05-25 22:40
PROVIDERS: ADMIT Internal Medicine; ATTEND Hospitalist
PROC: IRDRAIN (2017-05-26 12:00)

== ENCOUNTER 2017-06-20 12:08 | Observation (INO) ==
--- NOTE | 2017-06-20 12:23 | History & Physical Report ---
Date of Encounter: 06/20/17 Time of Encounter: 12:22 24 Hour HP Update - Instructions Instructions: If the History and Physical is less than 30 days old and was completed prior to A.M. admission and or procedure and has NOT been updated on calendar day of procedure please complete this update prior to performing procedure. - Update Patient reports changes in Medical Condition: No Changes in examination, assessment, or condition: No Changes in Medication: No Preop tests/diagnostics Reviewed: Yes Surgery Remains Indicated: Yes Consent for Planned Operative Procedure(s) Verified: Yes - Pre-Operative Checklist Preoperative Checklist Indicated: Yes Prophylactic Antibiotic Ordered: Yes Home Medications Include Beta Isak: No Beta Isak Taken Today (Day of Surgery): No Beta Isak Taken Yesterday (Day Prior to Surgery): No Is VTE Prophylaxis Indicated?: Yes - Attending Attestation patient seen and examined; no changes in patient health since last evaluation; okay to proceed with surgery
[2017-06-20] MEDS ORDERED: Famotidine 20 MG/2 ML VIAL IVP ONE (12:27)
[2017-06-20] MEDS ORDERED: Gabapentin 300 MG CAPSULE PO ONE (12:27)
--- NOTE | 2017-06-20 12:30 | Anesthesia Evaluation PreOp ---
Date of Encounter: 06/20/17 Time of Encounter: 12:30 - Past History Planned Operation: Lap Cholecystectomy Robotic Cardiac History: HTN Pulmonary History: Denies Any Significant HX CHILDCARE WORKER History: Denies Any Significant HX Other Medical History: GERD, Other (Arthritis) Anesthesia History: No Prior Anesthetic Complications Alcohol Use: none Drug use: none Medications and Allergies Amlodipine Besylate/Benazepril [Lotrel 10-20 mg Capsule] 1 cap PO DAILY [History] Meloxicam 15 mg PO DAILY 05/25/17 [History] Omeprazole [PriLOSEC] 20 mg PO DAILY 05/25/17 [History] Ciprofloxacin [Cipro] 500 mg PO BID #20 tablet 05/28/17 [Rx] Docusate Sodium [Colace] 100 mg PO BID #30 capsule 05/28/17 [Rx] HYDROcodone/Acet 5/325 mg [[place] 5-325 mg] 1 tab PO Q6H PRN 5 Days #20 tab 05/28 [Rx] Ibuprofen [Motrin] 600 mg PO Q8HR PRN #40 tab 05/28/17 [Rx] metroNIDAZOLE [Flagyl] 500 mg PO TID #30 tablet 05/28/17 [Rx] 3 Allergy/AdvReac Type Severity Reaction Status Date / Time Penicillins Allergy Mild Rash Verified 05/25/17 00:38 - Meds/Allergy Pre-op Review Medications Reviewed: Yes Allergies Reviewed: Yes Beta Blockers on Current Med List: No Anesthesia Results - Labs Laboratory Tests 05/27/17 05/28/17 03:52 08:52 Hgb 11.9 L Hct 36.0 L Plt Count 341 Sodium 134 L Potassium 3.6 BUN 13 Creatinine 0.98 - Imaging EKG: report reviewed (SR) Anesthesia Exam O2 Sat Height 1.73 m Height 1.73 m Weight 102.512 kg Weight 102.512 kg O2 Sat by Pulse Oximetry 98 Vital Signs Temp Pulse Resp BP Pulse Ox 97.9 F 91 18 158/111 98 06/20/17 12:21 06/20/17 12:21 06/20/17 12:21 06/20/17 12:21 06/20/17 12:21 Height: 5'8 Weight: 226 lbs NPO (# of Hours): MN Pain Scale: 0 - HEENT Pupil (Motor): Pupils equal, EOMI Mallampati: II Teeth: Normal Oral Opening: Greater than 3 - CHILDCARE WORKER LOC: Oriented CHILDC[employer] WORKER Motor: Normal RUE, Normal LUE, Normal RLE, Normal LLE, Normal Face CHILDC[employer] WORKER Sensory: Normal: RUE, LUE, RLE, LLE, Face - Cardiac Rhythm: Regular Murmur: None JVD: No Carotid Bruit: No - Pulmonary Breath Sounds: bilateral Clear Respiratory Effort: Symmetrical Anesthesia Assess/Plan ASA Score: 2 Modified [place] Scale for Level of Consciousness: Cooperative, oriented, and tranquil Anesthetic Plan: General, Regional Monitoring Plan: Standard Monitors Recovery Plan: PACU (Discussed GA, possible TAP Block, agrees to proceed)
--- NOTE | 2017-06-20 12:35 | Operative Note ---
Date of procedure: 06/20/17 Pre-op diagnosis: perforated gallbladder, liver abscess Post-op diagnosis: same Procedure: robotic cholecystectomy with intraoperative cholangiogram, removal of peritoneal drains Complications: none Anesthesia: GETA Surgeon: Zohaib Garcia Was there an certified first assistant present: No Scow Captain Other: magaly barreto Estimated blood loss (cc): 100 Specimen: gallbladder and contents; Condition: stable Disposition: PACU Procedure in Detail: The patient was brought into the operating room suite and was placed in the supine position. Mechanical DVT prophylaxis was applied. A time-in was conducted. The patient underwent smooth induction of anesthesia. Preoperative antibiotics were given. The patient was prepped and draped in the usual fashion. A time-out was held identifying the correct patient, pathology, and procedure. Everyone was in agreement and we began the procedure. Incision to Dissection I started by creating a 12mm supraumbilical incision. Via open Eyal technique I did enter into the abdomen. I inserted the 12mm trocar followed by the 30 degree camera, ensured that I did not cause intraabdominal injury upon entry, and quickly identified the gallbladder. It should be stated that this gallbladder was significantly inflammed with adhesions to the liver, duodenum, large bowel and omentum. I created a 5mm incisions one handbreadth to the left and right of the umbilical incision and an certified first assistant port along the R anterior axillary line. I then docked the robot in the usual fashion. Using laparoscopic graspers I was unable to elevate the gallbladder above the liver. but was able to expose the area where the cystic duct and common bile duct would be. Again, this area was significantly inflammed. At the Console Using the [place] instrument I was able to localized the cystic duct. I did have to carefully dissect for about 1hr before I was convinced that this was indeed the cystic duct. In addition, I used the hook-electrocautery, to expose the lower edge of the gallbladder to distinguish it from the liver. I had to cut the cystic duct to visualize the cystic artery. Again I verified that this was the only ductal structure going into the gallbladder AND I was able to identify the common bile duct prior to cutting the duct. I did utilize the firefly application to visualize the common bile duct and the cystic duct, serving as an intraoperative cholangiogram Critical view of Safety to Excison of the gallbladder I then clipped both structures using plastic clips, two on the stay side, one on the specimen side. Using robotic scissors, I cut between the clip on the specimen side and the first clip on the stay side. Then using tension and counter-tension, I used the electrocautery to excise the gallbladder off of the liver bed. It should be stated that the gallbladder literally peeled off of the liver bed with minimal effort. Furthermore I did violate the gallbladder wall and found that the sludge was thickend and 'mushy'. Before complete excision, I evaluated the liver bed to ensure there 1.) there was no bleeding, 2. No excessive bile leakage, and 3.) to evaluate my clips. There was no bleeding, bile leakage, and the clips were all the way across both duct and artery. Removal of gallbladder to Closure After undocking the robot, I inserted the endocatch bag into the umbilical port. I placed the specimen into the bag and retrieved it through the umbilical port. i then irrgiated the liver bed and above the liver before suctioning both irrigation fluid and air. I also placed a 19fr jolie drain in the liver bed as well. I removed the 5mm ports, turned off the insufllation, then removed the 12mm umbilical port. I then close the umbilical fascia a vicryl suture in a figure of 8 fashion. All incisions were closed with interrupted 4-0 monocryl and sealed with a skin stapler. The patient tolerated the procedure well and went back to PACU in stable condition.
--- NOTE | 2017-06-20 12:38 | Discharge Summary ---
Outpatient Proc Discharge Plan - Plan Additional Instructions: Pain Narcotics are prescribed. 1-2 tabs every 6 hours. Please take with meals. DO NOT drive while taking narcotics. Activity As tolerated. However, I encourage you to limit heaving lifting and strenuous activity until evaluated in clinic. Diet As tolerated. Please start with liquids for the first 6 hours after surgery. Your meal after 6 hours can be a regular diet. Bowel Regimen As long as you are taking narcotics, please take the stool softner daily. Warnings If you experience significant redness around the incision or drainage from the incision that is purulent or malodorous, or you experience fevers, chills, or food intolerance (including nausea, vomiting, abdominal pain or distension), jaundice or yellow skin, eyes, tongue/cheek, or any symptoms you feel warrant evaluation, please call the office. If unable to reach the office, please go to nearest urgent care center or emergency department Prescriptions: Oxycodone HCl 5 mg PO Q6HR 7 Days #28 tablet Home Medications: Amlodipine Besylate/Benazepril [Lotrel 10-20 mg Capsule] 1 cap PO DAILY [History] Meloxicam 15 mg PO DAILY 05/25/17 [History] Omeprazole [PriLOSEC] 20 mg PO DAILY 05/25/17 [History] Ciprofloxacin [Cipro] 500 mg PO BID #20 tablet 05/28/17 [Rx] Docusate Sodium [Colace] 100 mg PO BID #30 capsule 05/28/17 [Rx] HYDROcodone/Acet 5/325 mg [[place] 5-325 mg] 1 tab PO Q6H PRN 5 Days #20 tab 05/28 [Rx] Ibuprofen [Motrin] 600 mg PO Q8HR PRN #40 tab 05/28/17 [Rx] metroNIDAZOLE [Flagyl] 500 mg PO TID #30 tablet 05/28/17 [Rx] Oxycodone HCl 5 mg PO Q6HR 7 Days #28 tablet 06/20/17 [Rx]
[2017-06-20] MEDS ORDERED: *HR* Midazolam HCl 2 MG/2 ML VIAL ONE (12:45)
[2017-06-20] MEDS ORDERED: Ketorolac 30 MG/ML VIAL ONE (12:45)
[2017-06-20] MEDS ORDERED: Lidocaine -MPF 2% 2 ML VIAL ONE (12:45)
[2017-06-20] MEDS ORDERED: *HR* FentaNYL (PF) 100 MCG/2 ML VIAL ONE ×3 (12:45→16:12)
[2017-06-20] MEDS ORDERED: Dexamethasone 4 MG/ML VIAL ONE (12:45)
[2017-06-20] MEDS ORDERED: Neostigmine Methylsulfate 3 MG/3 ML SYRINGE ONE (12:45)
[2017-06-20] MEDS ORDERED: *HR* Rocuronium Bromide 50 MG/5 ML VIAL ONE ×2 (12:45→14:47)
[2017-06-20] MEDS ORDERED: Ringers Solution, Lactated 1,000 ML IVC SCH (12:45)
[2017-06-20] MEDS ORDERED: *HR* Succinylcholine 200 MG/10 ML VIAL IVP ONE (12:45)
[2017-06-20] MEDS ORDERED: Ondansetron 4 MG/2 ML VIAL ONE (12:45)
[2017-06-20] MEDS ORDERED: *HR* Propofol 200 MG/20 ML VIAL IVP ONE ×3 (12:45→15:58)
[2017-06-20] MEDS ORDERED: ROPIVACAINE HCL/PF 0.5% 30 ML VIAL ONE (12:48)
[2017-06-20] MEDS ORDERED: Levofloxacin 750 MG/150 ML 750 MG/150 ML BAG IVPB ONE (13:07)
[2017-06-20] MEDS ORDERED: *HR* HYDROmorphone (PF) 1 MG/ML SYRINGE IVP PRN (13:59)
[2017-06-20] MEDS ORDERED: *HR* Promethazine 25 MG/ML VIAL IVP PRN (13:59)
[2017-06-20] MEDS ORDERED: Ibuprofen 600 MG TABLET PO PRN (17:30)
[2017-06-20] MEDS: *HR* OxyCODONE/APAP 5/325 TABLET PO PRN (18:19)
[2017-06-20 18:46] LABS: BUN/Creatinine Ratio 16 (6-26); Blood Urea Nitrogen 16 mg/dL (8-23); Calcium 8.7 mg/dL (8.6-10.3); Carbon Dioxide 22 mEq/L (23-29); Chloride 109 mEq/L (98-107); Glucose 135 mg/dL (70-105); Osmolality,Calculated 293 (280-300); Potassium 4.3 mEq/L (3.5-5.1); Sodium 140 mEq/L (136-145); eGFR For African Americans > 60 (> 60); eGFR For Non-African Americans > 60 (> 60)
[2017-06-20] MEDS: OXYCODONE Oral CONC 10 MG/0.5 ML ORAL.SYG SL PRN (20:08)
--- NOTE | 2017-06-20 20:28 | Anesthesia Evaluation Post Op ---
Date of Encounter: 06/20/17 Time of Encounter: 16:55 - Discharge PostOp Status: Transfer Patient to floor (Patient's vital signs have been reviewed. Patient is stable postoperatively and has adequately recovered from anesthesia, unless otherwise noted. Patient is determined to have stable airway patency and respiratory function including respiratory rate and oxygen saturation. Patient has a stable heart rate, blood pressure and adequate hydration. Patients mental status is acceptable. Patients temperature is appropriate. Pain and nausea are adequately controlled.)
--- NOTE | 2017-06-20 20:48 | Event Note ---
Date of Encounter: 06/20/17 Time of Encounter: 20:44 Patient was admitted for observation overnight; will follow up on labs and drain output; if no or minimal bile output and labs are normal and patient is tolerating a diet, then can be discharged home with antibiotics. recommend PO merrem or levaquin and flagyl.
[2017-06-20] MEDS ORDERED: *HR* Metoprolol 5 MG/5 ML VIAL IVP ONE (21:33)
[2017-06-21] MEDS: *HR* OxyCODONE/APAP 5/325 TABLET PO PRN ×4 (00:48→19:49)
[2017-06-21] MEDS: MetroNIDAZOLE 500 MG/100 ML 500 MG/100 ML BAG IVPB SCH ×3 (00:48→15:40)
[2017-06-21 07:03] LABS: Basophils % 0.2 %; Hematocrit 39.8 % (37.5-50.1); Hemoglobin 13.4 g/dL (12.9-16.9); Immature Granulocytes % 0.3 % (0-4); Lymphocytes # 0.6 K/mcL (0.6-4.6); Lymphocytes % 5.5 %; Mean Corpuscular HGB Conc 33.7 g/dL (31.6-35.5); Mean Corpuscular Hemoglobin 29.1 pg (28.0-33.3); Mean Corpuscular Volume 86.3 fL (83.0-100.0); Mean Platelet Volume 10.4 fL (9.4-12.4); Monocytes # 0.9 K/mcL (0.0-1.3); Monocytes % 7.8 %; Platelet Count 201 K/mcL (140-400); Red Blood Count 4.61 M/mcL (4.19-5.50); Red Cell Distribution Width 14.1 % (11.5-14.5); Segmented Neutrophils % 86.2 %
[2017-06-21 07:26] LABS: Alanine Aminotransferase 17 Units/L (7-52); Albumin 3.2 g/dL (3.5-5.7); Albumin/Globulin Ratio 1.3 (1.1-2.2); Alkaline Phosphatase 55 Units/L (34-104); Aspartate Amino Transferase 23 Units/L (13-39); BUN/Creatinine Ratio 21 (6-26); Bilirubin,Total 0.9 mg/dL (0.3-1.0); Blood Urea Nitrogen 22 mg/dL (8-23); Calcium 8.6 mg/dL (8.6-10.3); Carbon Dioxide 20 mEq/L (23-29); Chloride 105 mEq/L (98-107); Globulin 2.5 g/dL (2.4-3.5); Glucose 164 mg/dL (70-105); Osmolality,Calculated 283 (280-300); Potassium 4.4 mEq/L (3.5-5.1); Sodium 133 mEq/L (136-145); Total Protein 5.7 g/dL (6.4-8.9); eGFR For African Americans > 60 (> 60); eGFR For Non-African Americans > 60 (> 60)
[2017-06-21] MEDS ORDERED: amLODIPine 5 MG TABLET PO SCH (09:00)
[2017-06-21] MEDS: OXYCODONE Oral CONC 10 MG/0.5 ML ORAL.SYG SL PRN ×3 (09:03→22:15)
[2017-06-21] MEDS: Lisinopril 20 MG TABLET PO SCH (09:03)
[2017-06-21] MEDS: amLODIPine 5 MG TABLET PO SCH (09:04)
[2017-06-21] MEDS: Pantoprazole 40 MG VIAL IVP SCH (09:04)
--- NOTE | 2017-06-21 14:59 | General Surgery Progress Note ---
<Troy Mir - Last Filed: 06/21/17 14:55> Date of Encounter: 06/21/17 Time of Encounter: 10:30 - Assessment and Plan (1) Status post cholecystectomy Current Visit: Yes Status: Acute POD 1 s/p robotic cholecystectomy with intraoperative cholangiogram, removal of peritoneal drains. Continue regular diet. Continue G.I. prophylaxis pain control continue IV antibiotics Out of bed to chair and ambulate with assistance 3 times a day continue the GLORIA drain. If there is minimal to no bile drainage and he continues to tolerate diet without any nausea and vomiting, plan for possible discharge with 5 days of antibiotics. (2) Perforated gallbladder Current Visit: Yes Status: Acute POD 1 s/p robotic cholecystectomy with intraoperative cholangiogram. Patient tolerated procedure well. See plan as above. Subjective Patient reports: feels better, pain is less, tolerating liquids well, afebrile Narrative: The patient was seen and evaluated at bedside this morning. Family member was at bedside. The patient was awake, alert, afebrile, and appears in no acute distress. Patient was sitting up in his chair. Patient admits feeling better today when compared to yesterday. Pain is less today. He denies any nausea vomiting and admits passing gas. He admits he tolerated his liquid diet without any difficulty. The patient denies any fever, headaches, vision changes , chest pain, shortness of breath, difficulty breathing, nausea, vomiting, bowel movements, urinary symptoms, numbness and tingling, and any weaknesses. The patient has no other concerns at this time. Objective Vital Signs - Last 8 Hours Temp Pulse Resp BP Pulse Ox 06/21/17 11:28 97.9 F 116 18 133/91 93 Intake and Output 06/20/17 06/21/17 06/21/17 23:59 07:59 15:59 Intake Total 320 / 320 300 / 300 Output Total 360 / 360 595 / 595 Balance -40 / -40 -295 / -295 Intake: IV Fluids 200 / 200 300 / 300 Cipro Premix 400 MG/200 ML 400 200 / 200 200 / 200 mg In 200 ml @ 200 mls/hr IVPB Q12HR KATHY Rx#:[id number] Flagyl Premix 500 MG/100 ML 500 100 / 100 mg In 100 ml @ 100 mls/hr IVPB Q8HR KATHY Rx#:[id number] Oral 120 / 120 0 / 0 Output: Urine 100 / 100 575 / 575 Estimated Blood Loss 100 / 100 Wound Drainage 160 / 160 20 / 20 Right Lower Abdomen 20 / 20 20 / 20 Other: # Voids 2 - General physical appearance well developed, well nourished, no distress - Eyes PERRL, normal ocular movement - ENT normal mucosa - Neck Neck exam: trachea midline - Respiratory normal expansion, normal respiratory effort - Cardiovascular Cardiovascular exam: Present: tachycardia, no murmurs/rubs/gallops - Abdomen Abdomen: Present: bowel sounds present, soft, tender (Appropriate postoperative tenderness) Hernia: none Additional Comments: GLORIA drain has serosanguinous drainage that is tinged with bilious. - Incision Incision: Present: clean and dry, intact. Absent: draining, purulent - Integumentary no rash - Neurologic CN 2-12 grossly intact - Psychiatric oriented to time, oriented to person, oriented to place - Labs 06/21/17 06:44 06/21/17 06:44 Diabetes panel 06/20/17 06/21/17 Range/Units 17:57 06:44 Sodium 140 133 L (136-145) mEq/L Potassium 4.3 4.4 (3.5-5.1) mEq/L Chloride 109 H 105 (98-107) mEq/L Carbon Dioxide 22 L 20 L (23-29) mEq/L BUN 16 22 (8-23) mg/dL Creatinine 1.03 1.06 (0.70-1.30) mg/dL Glucose 135 H 164 H (70-105) mg/dL Calcium 8.7 8.6 (8.6-10.3) mg/dL AST 23 (13-39) Units/L ALT 17 (7-52) Units/L Alkaline Phosphatase 55 (34-104) Units/L Albumin 3.2 L (3.5-5.7) g/dL Calcium panel 06/20/17 06/21/17 Range/Units 17:57 06:44 Calcium 8.7 8.6 (8.6-10.3) mg/dL Albumin 3.2 L (3.5-5.7) g/dL Pituitary panel 06/20/17 06/21/17 Range/Units 17:57 06:44 Sodium 140 133 L (136-145) mEq/L Potassium 4.3 4.4 (3.5-5.1) mEq/L Chloride 109 H 105 (98-107) mEq/L Carbon Dioxide 22 L 20 L (23-29) mEq/L BUN 16 22 (8-23) mg/dL Creatinine 1.03 1.06 (0.70-1.30) mg/dL Glucose 135 H 164 H (70-105) mg/dL Calcium 8.7 8.6 (8.6-10.3) mg/dL Adrenal panel 06/20/17 06/21/17 Range/Units 17:57 06:44 Sodium 140 133 L (136-145) mEq/L Potassium 4.3 4.4 (3.5-5.1) mEq/L Chloride 109 H 105 (98-107) mEq/L Carbon Dioxide 22 L 20 L (23-29) mEq/L BUN 16 22 (8-23) mg/dL Creatinine 1.03 1.06 (0.70-1.30) mg/dL Glucose 135 H 164 H (70-105) mg/dL Calcium 8.7 8.6 (8.6-10.3) mg/dL Total Bilirubin 0.9 (0.3-1.0) mg/dL AST 23 (13-39) Units/L ALT 17 (7-52) Units/L Alkaline Phosphatase 55 (34-104) Units/L Albumin 3.2 L (3.5-5.7) g/dL - VTE Documentation of Mechanical Device: Intermittent pneumatic compression device Consult Discharge Plan - Plan Additional Instructions: Pain Narcotics are prescribed. 1-2 tabs every 6 hours. Please take with meals. DO NOT drive while taking narcotics. Activity As tolerated. However, I encourage you to limit heaving lifting and strenuous activity until evaluated in clinic. Diet As tolerated. Please start with liquids for the first 6 hours after surgery. Your meal after 6 hours can be a regular diet. Bowel Regimen As long as you are taking narcotics, please take the stool softner daily. Warnings If you experience significant redness around the incision or drainage from the incision that is purulent or malodorous, or you experience fevers, chills, or food intolerance (including nausea, vomiting, abdominal pain or distension), jaundice or yellow skin, eyes, tongue/cheek, or any symptoms you feel warrant evaluation, please call the office. If unable to reach the office, please go to nearest urgent care center or emergency department Referrals: Lissette Aguirre [Primary Care Provider] - Irene Howe DO [Family Provider] - <Matthew Mcnair - Last Filed: 06/22/17 12:46> Date of Encounter: 06/21/17 Objective Vital Signs - Last 8 Hours Temp Pulse Resp BP Pulse Ox 06/22/17 09:32 94 06/22/17 08:05 98.9 F 108 20 128/87 93 06/22/17 06:01 98.9 F 111 24 137/91 94 Intake and Output 06/21/17 06/22/17 06/22/17 23:59 07:59 15:59 Intake Total 300 / 300 300 / 300 Output Total 5 / 5 200 / 200 Balance 295 / 295 100 / 100 Intake: IV Fluids 300 / 300 300 / 300 Cipro Premix 400 MG/200 ML 400 200 / 200 200 / 200 mg In 200 ml @ 200 mls/hr IVPB Q12HR KATHY Rx#:[id number] Flagyl Premix 500 MG/100 ML 500 100 / 100 100 / 100 mg In 100 ml @ 100 mls/hr IVPB Q8HR KATHY Rx#:[id number] Oral 0 / 0 0 / 0 Output: Urine 200 / 200 Wound Drainage 5 / 5 0 / 0 Right Lower Abdomen 5 / 5 0 / 0 Other: # Voids 1 Weight 103.2 kg Patient Weight 06/22/17 23:59 Weight 103.2 kg - Labs 06/22/17 06:54 06/22/17 06:54 Diabetes panel 06/22/17 Range/Units 06:54 Sodium 128 L (136-145) mEq/L Potassium 4.3 (3.5-5.1) mEq/L Chloride 99 (98-107) mEq/L Carbon Dioxide 23 (23-29) mEq/L BUN 26 H (8-23) mg/dL Creatinine 1.21 (0.70-1.30) mg/dL Glucose 157 H (70-105) mg/dL Calcium 8.5 L (8.6-10.3) mg/dL AST 14 (13-39) Units/L ALT 14 (7-52) Units/L Alkaline Phosphatase 59 (34-104) Units/L Albumin 2.9 L (3.5-5.7) g/dL Calcium panel 06/22/17 Range/Units 06:54 Calcium 8.5 L (8.6-10.3) mg/dL Albumin 2.9 L (3.5-5.7) g/dL Pituitary panel 06/22/17 Range/Units 06:54 Sodium 128 L (136-145) mEq/L Potassium 4.3 (3.5-5.1) mEq/L Chloride 99 (98-107) mEq/L Carbon Dioxide 23 (23-29) mEq/L BUN 26 H (8-23) mg/dL Creatinine 1.21 (0.70-1.30) mg/dL Glucose 157 H (70-105) mg/dL Calcium 8.5 L (8.6-10.3) mg/dL Adrenal panel 06/22/17 Range/Units 06:54 Sodium 128 L (136-145) mEq/L Potassium 4.3 (3.5-5.1) mEq/L Chloride 99 (98-107) mEq/L Carbon Dioxide 23 (23-29) mEq/L BUN 26 H (8-23) mg/dL Creatinine 1.21 (0.70-1.30) mg/dL Glucose 157 H (70-105) mg/dL Calcium 8.5 L (8.6-10.3) mg/dL Total Bilirubin 1.4 H (0.3-1.0) mg/dL AST 14 (13-39) Units/L ALT 14 (7-52) Units/L Alkaline Phosphatase 59 (34-104) Units/L Albumin 2.9 L (3.5-5.7) g/dL - Attending Attestation I examined this patient and my medical decision-making was reviewed with the Resident Physician. I agree with the documented findings, disposition and treatment plan as described except to the extent set forth below. The patient is seen and evaluated on morning rounds with the resident. He is sitting comfortably in a chair. He has serosanguineous drainage from his subhepatic drain with a tinge of purulence. We will continue to watch him closely. He is progressing well. Continue IV antibiotics. Matthew Mcnair MD FACS
[2017-06-21] MEDS ORDERED: Albuterol 2.5 MG/3 ML NEBULIZER IH ONE (23:06)
[2017-06-22] MEDS: MetroNIDAZOLE 500 MG/100 ML 500 MG/100 ML BAG IVPB SCH ×2 (00:33→08:43)
[2017-06-22] MEDS: *HR* OxyCODONE/APAP 5/325 TABLET PO PRN ×2 (03:01→08:43)
[2017-06-22] MEDS: OXYCODONE Oral CONC 10 MG/0.5 ML ORAL.SYG SL PRN ×2 (06:16→20:39)
[2017-06-22 07:40] LABS: Alanine Aminotransferase 14 Units/L (7-52); Albumin 2.9 g/dL (3.5-5.7); Albumin/Globulin Ratio 1.2 (1.1-2.2); Alkaline Phosphatase 59 Units/L (34-104); Aspartate Amino Transferase 14 Units/L (13-39); BUN/Creatinine Ratio 21 (6-26); Bilirubin,Total 1.4 mg/dL (0.3-1.0); Blood Urea Nitrogen 26 mg/dL (8-23); Calcium 8.5 mg/dL (8.6-10.3); Carbon Dioxide 23 mEq/L (23-29); Chloride 99 mEq/L (98-107); Globulin 2.5 g/dL (2.4-3.5); Glucose 157 mg/dL (70-105); Osmolality,Calculated 274 (280-300); Potassium 4.3 mEq/L (3.5-5.1); Sodium 128 mEq/L (136-145); Total Protein 5.4 g/dL (6.4-8.9); eGFR For African Americans > 60 (> 60); eGFR For Non-African Americans > 60 (> 60)
[2017-06-22 08:16] LABS: Basophils % 0.2 %; Eosinophils % 0.1 %; Hematocrit 38.4 % (37.5-50.1); Hemoglobin 12.5 g/dL (12.9-16.9); Immature Granulocytes % 0.9 % (0-4); Lymphocytes # 1.2 K/mcL (0.6-4.6); Lymphocytes % 6.6 %; Mean Corpuscular HGB Conc 32.6 g/dL (31.6-35.5); Mean Corpuscular Hemoglobin 29.2 pg (28.0-33.3); Mean Corpuscular Volume 89.7 fL (83.0-100.0); Mean Platelet Volume 11.1 fL (9.4-12.4); Monocytes # 1.1 K/mcL (0.0-1.3); Neutrophils # 15.5 K/mcL (1.6-8.9); Platelet Count 184 K/mcL (140-400); Red Blood Count 4.28 M/mcL (4.19-5.50); Red Cell Distribution Width 14.2 % (11.5-14.5); Segmented Neutrophils % 86.2 %
[2017-06-22] MEDS: Lisinopril 20 MG TABLET PO SCH (08:42)
[2017-06-22] MEDS: Pantoprazole 40 MG VIAL IVP SCH (08:43)
[2017-06-22] MEDS: amLODIPine 5 MG TABLET PO SCH (08:43)
[2017-06-22] MEDS ORDERED: 0.9 % Sodium Chloride 500 ML IVC ONE (11:06)
[2017-06-22] MEDS: Fluconazole 100 MG TABLET PO SCH (12:33)
[2017-06-22] MEDS: Meropenem 1,000 MG in Water for inj. (sterile) 20 ML 10 ML IVP SCH ×2 (12:34→20:38)
[2017-06-22] MEDS: 0.9 % Sodium Chloride 1,000 ML IVC SCH (12:34)
--- NOTE | 2017-06-22 14:59 | General Surgery Progress Note ---
<Troy Mir - Last Filed: 06/22/17 14:54> Date of Encounter: 06/22/17 Time of Encounter: 14:54 - Assessment and Plan (1) Status post cholecystectomy Current Visit: Yes Status: Acute POD 2 s/p robotic cholecystectomy with intraoperative cholangiogram, removal of peritoneal drains. Overnight, the patient became febrile and tachycardic. Patient had an elevated WBC of 18 today. Ordered CXR to further evaluate. CXR report reads left lower lobe pneumonia. Continue regular diet. Continue G.I. prophylaxis pain control Discontinue the ciprofloxacin and Flagyl. Will start the patient on Diflucan and Meropenem. Start the patient on azithromycin and ceftriaxone for pneumonia. Out of bed to chair and ambulate with assistance 3 times a day continue the GLORIA drain. Await return of bowel functions. (2) Pneumonia Current Visit: Yes Status: Acute Overnight, the patient was afebrile and tachycardic. Labs today show hyponatremia with sodium at 128 and leukocytosis with elevated white blood count of 18 and elevated neutrophils at 15.5. Chest x-ray today showed findings suggesting left lower lobe pneumonia. -Will give IV antibiotics: Azithromycin and ceftriaxone for pneumonia -Administer a bolus of 500mL of NS -IVF with NS at 75mL/hr -Pain control -Atenolol 50mg PO daily to help control tachycardia. -Encourage patient to get out of the bed and into the chair at least 3 times a day. -Encourage IS Qualifiers: Pneumonia type: due to unspecified organism Laterality: left Lung location: lower lobe of lung Qualified Code(s): J18.1 - Lobar pneumonia, unspecified organism (3) Perforated gallbladder Current Visit: Yes Status: Acute POD 2 s/p robotic cholecystectomy with intraoperative cholangiogram. Patient tolerated procedure well. See plan as above. Subjective Patient reports: still having pain, pain is less, flatus, no bowel movement, afebrile Narrative: The patient was seen and evaluated at bedside. is at bedside. Patient is awake, alert, interactive, afebrile, and appears in no acute distress. Patient admits he had a temperature of 101.4 last night. The patient admits he has less pain today when compared to yesterday. He admits he is passing gas. However, the patient denies any bowel movements at this time. The patient denies any headaches, vision changes, chest pain, shortness of breath, difficulty breathing, abdominal pain, urinary symptoms, numbness and tingling, seizures, and any weaknesses. The patient has no other concerns at this time. Objective Vital Signs - Last 8 Hours Temp Pulse Resp BP Pulse Ox 06/22/17 09:32 94 06/22/17 08:05 98.9 F 108 20 128/87 93 Intake and Output 06/21/17 06/22/17 06/22/17 23:59 07:59 15:59 Intake Total 300 / 300 300 / 300 Output Total 5 / 5 200 / 200 Balance 295 / 295 100 / 100 Intake: IV Fluids 300 / 300 300 / 300 Cipro Premix 400 MG/200 ML 400 200 / 200 200 / 200 mg In 200 ml @ 200 mls/hr IVPB Q12HR [facility] Rx#:[id number] Flagyl Premix 500 MG/100 ML 500 100 / 100 100 / 100 mg In 100 ml @ 100 mls/hr IVPB Q8HR [facility] Rx#:[id number] Oral 0 / 0 0 / 0 Output: Urine 200 / 200 Wound Drainage 5 / 5 0 / 0 Right Lower Abdomen 5 / 5 0 / 0 Other: # Voids 1 Weight 103.2 kg Patient Weight 06/22/17 23:59 Weight 103.2 kg - General physical appearance well developed, well nourished, no distress - Eyes PERRL, normal ocular movement - ENT normal mucosa - Respiratory normal expansion, normal respiratory effort, other (Decreased breath sounds on the left lower lobe.) - Cardiovascular Cardiovascular exam: Present: tachycardia, no murmurs/rubs/gallops - Abdomen Abdomen: Present: soft, tender (Appropriate post operative tentativeness), wound (GLORIA drain has serosanguinous drainage with a trace purulent ). Absent: distended Hernia: none - Incision Incision: Present: clean and dry, intact. Absent: draining, purulent - Integumentary no rash - Neurologic CN 2-12 grossly intact - Psychiatric oriented to time, oriented to person, oriented to place - Labs 06/22/17 06:54 06/22/17 06:54 Diabetes panel 06/22/17 Range/Units 06:54 Sodium 128 L (136-145) mEq/L Potassium 4.3 (3.5-5.1) mEq/L Chloride 99 (98-107) mEq/L Carbon Dioxide 23 (23-29) mEq/L BUN 26 H (8-23) mg/dL Creatinine 1.21 (0.70-1.30) mg/dL Glucose 157 H (70-105) mg/dL Calcium 8.5 L (8.6-10.3) mg/dL AST 14 (13-39) Units/L ALT 14 (7-52) Units/L Alkaline Phosphatase 59 (34-104) Units/L Albumin 2.9 L (3.5-5.7) g/dL Calcium panel 06/22/17 Range/Units 06:54 Calcium 8.5 L (8.6-10.3) mg/dL Albumin 2.9 L (3.5-5.7) g/dL Pituitary panel 06/22/17 Range/Units 06:54 Sodium 128 L (136-145) mEq/L Potassium 4.3 (3.5-5.1) mEq/L Chloride 99 (98-107) mEq/L Carbon Dioxide 23 (23-29) mEq/L BUN 26 H (8-23) mg/dL Creatinine 1.21 (0.70-1.30) mg/dL Glucose 157 H (70-105) mg/dL Calcium 8.5 L (8.6-10.3) mg/dL Adrenal panel 06/22/17 Range/Units 06:54 Sodium 128 L (136-145) mEq/L Potassium 4.3 (3.5-5.1) mEq/L Chloride 99 (98-107) mEq/L Carbon Dioxide 23 (23-29) mEq/L BUN 26 H (8-23) mg/dL Creatinine 1.21 (0.70-1.30) mg/dL Glucose 157 H (70-105) mg/dL Calcium 8.5 L (8.6-10.3) mg/dL Total Bilirubin 1.4 H (0.3-1.0) mg/dL AST 14 (13-39) Units/L ALT 14 (7-52) Units/L Alkaline Phosphatase 59 (34-104) Units/L Albumin 2.9 L (3.5-5.7) g/dL - VTE Documentation of Mechanical Device: Intermittent pneumatic compression device Consult Discharge Plan - Plan Additional Instructions: Pain Narcotics are prescribed. 1-2 tabs every 6 hours. Please take with meals. DO NOT drive while taking narcotics. Activity As tolerated. However, I encourage you to limit heaving lifting and strenuous activity until evaluated in clinic. Diet As tolerated. Please start with liquids for the first 6 hours after surgery. Your meal after 6 hours can be a regular diet. Bowel Regimen As long as you are taking narcotics, please take the stool softner daily. Warnings If you experience significant redness around the incision or drainage from the incision that is purulent or malodorous, or you experience fevers, chills, or food intolerance (including nausea, vomiting, abdominal pain or distension), jaundice or yellow skin, eyes, tongue/cheek, or any symptoms you feel warrant evaluation, please call the office. If unable to reach the office, please go to nearest urgent care center or emergency department Referrals: Lissette Aguirre [Primary Care Provider] - Irene Howe DO [Family Provider] - <Matthew Mcnair - Last Filed: 06/22/17 16:10> Date of Encounter: 06/22/17 - Assessment and Plan (1) Pneumonia Current Visit: Yes Status: Acute Qualifiers: Pneumonia type: due to unspecified organism Laterality: left Lung location: lower lobe of lung Qualified Code(s): J18.1 - Lobar pneumonia, unspecified organism Objective Vital Signs - Last 8 Hours Temp Pulse Resp BP Pulse Ox 06/22/17 16:01 98.1 F 98 18 118/79 93 06/22/17 09:32 94 Intake and Output 06/22/17 06/22/17 06/22/17 07:59 15:59 23:59 Intake Total 300 / 300 20 / 20 Output Total 200 / 200 0 / 0 Balance 100 / 100 20 / 20 Intake: IV Fluids 300 / 300 20 / 20 Merrem 1,000 MG In Water for 10 / 10 inj. (sterile) 10 ML @ 200 mls/ hr IVP Q8H [facility] Rx#:[id number] Rocephin 1,000 MG In Water for 10 / 10 inj. (sterile) 10 ML @ 300 mls/ hr IVP DAILY [facility] Rx#:[id number] Cipro Premix 400 MG/200 ML 400 200 / 200 mg In 200 ml @ 200 mls/hr IVPB Q12HR [facility] Rx#:[id number] Flagyl Premix 500 MG/100 ML 500 100 / 100 mg In 100 ml @ 100 mls/hr IVPB Q8HR [facility] Rx#:[id number] Oral 0 / 0 Output: Urine 200 / 200 Wound Drainage 0 / 0 0 / 0 Right Lower Abdomen 0 / 0 0 / 0 Other: Weight 103.2 kg Patient Weight 06/22/17 23:59 Weight 103.2 kg - Labs 06/22/17 06:54 06/22/17 06:54 Diabetes panel 06/22/17 Range/Units 06:54 Sodium 128 L (136-145) mEq/L Potassium 4.3 (3.5-5.1) mEq/L Chloride 99 (98-107) mEq/L Carbon Dioxide 23 (23-29) mEq/L BUN 26 H (8-23) mg/dL Creatinine 1.21 (0.70-1.30) mg/dL Glucose 157 H (70-105) mg/dL Calcium 8.5 L (8.6-10.3) mg/dL AST 14 (13-39) Units/L ALT 14 (7-52) Units/L Alkaline Phosphatase 59 (34-104) Units/L Albumin 2.9 L (3.5-5.7) g/dL Calcium panel 06/22/17 Range/Units 06:54 Calcium 8.5 L (8.6-10.3) mg/dL Albumin 2.9 L (3.5-5.7) g/dL Pituitary panel 06/22/17 Range/Units 06:54 Sodium 128 L (136-145) mEq/L Potassium 4.3 (3.5-5.1) mEq/L Chloride 99 (98-107) mEq/L Carbon Dioxide 23 (23-29) mEq/L BUN 26 H (8-23) mg/dL Creatinine 1.21 (0.70-1.30) mg/dL Glucose 157 H (70-105) mg/dL Calcium 8.5 L (8.6-10.3) mg/dL Adrenal panel 06/22/17 Range/Units 06:54 Sodium 128 L (136-145) mEq/L Potassium 4.3 (3.5-5.1) mEq/L Chloride 99 (98-107) mEq/L Carbon Dioxide 23 (23-29) mEq/L BUN 26 H (8-23) mg/dL Creatinine 1.21 (0.70-1.30) mg/dL Glucose 157 H (70-105) mg/dL Calcium 8.5 L (8.6-10.3) mg/dL Total Bilirubin 1.4 H (0.3-1.0) mg/dL AST 14 (13-39) Units/L ALT 14 (7-52) Units/L Alkaline Phosphatase 59 (34-104) Units/L Albumin 2.9 L (3.5-5.7) g/dL - Attending Attestation I examined this patient and my medical decision-making was reviewed with the Resident Physician. I agree with the documented findings, disposition and treatment plan as described except to the extent set forth below. The patient is seen and evaluated on morning rounds with resident. He had several episodes of tachycardia last night associated with febrile episode. He had no worsening of his abdominal pain or change in his abdominal drainage. White blood cell count is elevated. A chest x-ray demonstrated pneumonia. He was started on appropriate IV antibiotics. Matthew Mcnair MD FACS
[2017-06-22] MEDS: cefTRIAXone 1,000 MG in Water for inj. (sterile) 20 ML 10 ML IVP SCH (15:04)
[2017-06-22] MEDS: Azithromycin 500 MG in D5% in Water 250 ML IVPB SCH (15:04)
[2017-06-22] MEDS ORDERED: Ondansetron 4 MG/2 ML VIAL IVP PRN (16:05)
[2017-06-22] MEDS: Loratadine 10 MG TABLET PO PRN (20:49)
[2017-06-23] MEDS: *HR* OxyCODONE/APAP 5/325 TABLET PO PRN ×4 (00:43→23:38)
[2017-06-23] MEDS: Meropenem 1,000 MG in Water for inj. (sterile) 20 ML 10 ML IVP SCH ×3 (04:36→20:23)
[2017-06-23] MEDS: OXYCODONE Oral CONC 10 MG/0.5 ML ORAL.SYG SL PRN ×3 (04:37→20:24)
[2017-06-23] MEDS: 0.9 % Sodium Chloride 1,000 ML IVC SCH ×2 (04:37→20:25)
[2017-06-23 05:57] LABS: Basophils # 0.1 K/mcL (0.0-0.2); Basophils % 0.3 %; Eosinophils # 0.4 K/mcL (0.0-0.6); Hematocrit 34.5 % (37.5-50.1); Hemoglobin 11.5 g/dL (12.9-16.9); Lymphocytes # 1.2 K/mcL (0.6-4.6); Lymphocytes % 6.9 %; Mean Corpuscular HGB Conc 33.3 g/dL (31.6-35.5); Mean Corpuscular Hemoglobin 29.5 pg (28.0-33.3); Mean Corpuscular Volume 88.5 fL (83.0-100.0); Mean Platelet Volume 10.9 fL (9.4-12.4); Monocytes # 1.1 K/mcL (0.0-1.3); Monocytes % 6.3 %; Neutrophils # 14.1 K/mcL (1.6-8.9); Platelet Count 164 K/mcL (140-400); Segmented Neutrophils % 82.5 %
[2017-06-23 06:22] LABS: Alanine Aminotransferase 10 Units/L (7-52); Albumin 2.7 g/dL (3.5-5.7); Albumin/Globulin Ratio 1.1 (1.1-2.2); Alkaline Phosphatase 65 Units/L (34-104); Aspartate Amino Transferase 10 Units/L (13-39); BUN/Creatinine Ratio 21 (6-26); Bilirubin,Total 0.8 mg/dL (0.3-1.0); Blood Urea Nitrogen 22 mg/dL (8-23); Calcium 8.4 mg/dL (8.6-10.3); Carbon Dioxide 24 mEq/L (23-29); Chloride 103 mEq/L (98-107); Globulin 2.5 g/dL (2.4-3.5); Glucose 112 mg/dL (70-105); Osmolality,Calculated 280 (280-300); Potassium 4.4 mEq/L (3.5-5.1); Sodium 133 mEq/L (136-145); Total Protein 5.2 g/dL (6.4-8.9); eGFR For African Americans > 60 (> 60); eGFR For Non-African Americans > 60 (> 60)
[2017-06-23] MEDS: Fluconazole 100 MG TABLET PO SCH (07:57)
[2017-06-23] MEDS: cefTRIAXone 1,000 MG in Water for inj. (sterile) 20 ML 10 ML IVP SCH (07:57)
[2017-06-23] MEDS: Lisinopril 20 MG TABLET PO SCH (07:57)
[2017-06-23] MEDS: Pantoprazole 40 MG VIAL IVP SCH (07:57)
[2017-06-23] MEDS: amLODIPine 5 MG TABLET PO SCH (07:58)
[2017-06-23] MEDS: Azithromycin 500 MG in D5% in Water 250 ML IVPB SCH (15:10)
--- NOTE | 2017-06-23 16:07 | General Surgery Progress Note ---
<Juan CarlosDanielle Hubbard - Last Filed: 06/23/17 16:02> Date of Encounter: 06/23/17 Time of Encounter: 16:02 - Assessment and Plan (1) Status post cholecystectomy Status: Acute POD #3 POD s/p robotic cholecystectomy with intraoperative cholangiogram, removal of peritoneal drains with notable necrotic GB. On 06/21/2017, he noted febrile and tachycardic and was subsequently noted to have pneumonia and started on IV antibiotics. His abdominal discomfort is well controlled. He has small amount of drainage as noted per is assessment from his GLORIA bulb. He is afebrile. His WBC is downtrending. Plan: CT abd pelvis with IV and oral contrast to r/o any continued or new abscess formation continue discomfort management and and supportive care regular diet activity as tolerated continue G.I. and DVT prophylaxis incentive spirometry DC planning pending clinical course above (2) Hepatic abscess Status: Acute (3) Pneumonia Status: Acute Continue IV antibiotics. Continue aggressive pulmonary toileting repeat a.m. labs Qualifiers: Pneumonia type: due to unspecified organism Laterality: left Lung location: lower lobe of lung Qualified Code(s): J18.1 - Lobar pneumonia, unspecified organism (4) Perforated gallbladder Status: Acute Subjective Patient reports: no new complaints, feels better, still having pain, pain is less, tolerating liquids well, voiding w/o difficulty, flatus, bowel movement, afebrile Objective Vital Signs - Last 8 Hours Temp Pulse Resp BP Pulse Ox 06/23/17 14:27 98.5 F 91 14 127/90 91 06/23/17 10:57 98.1 F 78 14 137/87 93 Intake and Output 06/23/17 06/23/17 06/23/17 07:59 15:59 23:59 Intake Total 1410 / 1410 850 / 850 Output Total 350 / 350 Balance 1060 / 1060 850 / 850 Intake: IV Fluids 1010 / 1010 250 / 250 0.9 % Sodium Chloride 1,000 ML 1000 / 1000 @ 75 mls/hr IVC .[id number] [facility] Rx #:[id number] Merrem 1,000 MG In Water for 10 / 10 inj. (sterile) 10 ML @ 200 mls/ hr IVP Q8H [facility] Rx#:[id number] Zithromax 500 mg In Dextrose 5% 250 / 250 250 ML @ 252 mls/hr IVPB Q24H [facility] Rx#:[id number] Oral 400 / 400 600 / 600 Output: Urine 350 / 350 Other: Meal Lunch Percent of Meal Consumed 0% # Voids 0 1 - General physical appearance no distress, moderate pain - Eyes normal ocular movement - ENT atraumatic, normocephalic - Neck Neck exam: trachea midline, no venous distension - Respiratory normal expansion, normal respiratory effort, clear to auscultation - Cardiovascular Cardiovascular exam: Present: RRR - Abdomen Abdomen: Present: bowel sounds present, soft, tender (Expected postoperative tenderness), wound (GLORIA drain with cloudy SS drainage) - Integumentary no growths, no abnormal pigmentation - Neurologic normal coordination, normal sensation - Musculoskeletal normal gait, normal posture - Psychiatric oriented to time, oriented to person, oriented to place, speech is normal, memory intact - Labs 06/23/17 05:04 06/23/17 05:04 Diabetes panel 06/23/17 Range/Units 05:04 Sodium 133 L (136-145) mEq/L Potassium 4.4 (3.5-5.1) mEq/L Chloride 103 (98-107) mEq/L Carbon Dioxide 24 (23-29) mEq/L BUN 22 (8-23) mg/dL Creatinine 1.05 (0.70-1.30) mg/dL Glucose 112 H (70-105) mg/dL Calcium 8.4 L (8.6-10.3) mg/dL AST 10 L (13-39) Units/L ALT 10 (7-52) Units/L Alkaline Phosphatase 65 (34-104) Units/L Albumin 2.7 L (3.5-5.7) g/dL Calcium panel 06/23/17 Range/Units 05:04 Calcium 8.4 L (8.6-10.3) mg/dL Albumin 2.7 L (3.5-5.7) g/dL Pituitary panel 06/23/17 Range/Units 05:04 Sodium 133 L (136-145) mEq/L Potassium 4.4 (3.5-5.1) mEq/L Chloride 103 (98-107) mEq/L Carbon Dioxide 24 (23-29) mEq/L BUN 22 (8-23) mg/dL Creatinine 1.05 (0.70-1.30) mg/dL Glucose 112 H (70-105) mg/dL Calcium 8.4 L (8.6-10.3) mg/dL Adrenal panel 06/23/17 Range/Units 05:04 Sodium 133 L (136-145) mEq/L Potassium 4.4 (3.5-5.1) mEq/L Chloride 103 (98-107) mEq/L Carbon Dioxide 24 (23-29) mEq/L BUN 22 (8-23) mg/dL Creatinine 1.05 (0.70-1.30) mg/dL Glucose 112 H (70-105) mg/dL Calcium 8.4 L (8.6-10.3) mg/dL Total Bilirubin 0.8 (0.3-1.0) mg/dL AST 10 L (13-39) Units/L ALT 10 (7-52) Units/L Alkaline Phosphatase 65 (34-104) Units/L Albumin 2.7 L (3.5-5.7) g/dL - VTE Documentation of Mechanical Device: Intermittent pneumatic compression device Consult Discharge Plan - Plan Additional Instructions: Pain Narcotics are prescribed. 1-2 tabs every 6 hours. Please take with meals. DO NOT drive while taking narcotics. Activity As tolerated. However, I encourage you to limit heaving lifting and strenuous activity until evaluated in clinic. Diet As tolerated. Please start with liquids for the first 6 hours after surgery. Your meal after 6 hours can be a regular diet. Bowel Regimen As long as you are taking narcotics, please take the stool softner daily. Warnings If you experience significant redness around the incision or drainage from the incision that is purulent or malodorous, or you experience fevers, chills, or food intolerance (including nausea, vomiting, abdominal pain or distension), jaundice or yellow skin, eyes, tongue/cheek, or any symptoms you feel warrant evaluation, please call the office. If unable to reach the office, please go to nearest urgent care center or emergency department Referrals: Lissette Aguirre [Primary Care Provider] - Irene Howe DO [Family Provider] - Danielle Rangel, ESTHETICIAN SPA [Advanced Practice Nurse] - 07/04/17 10:20 am <Matthew Mcnair - Last Filed: 06/24/17 16:33> Date of Encounter: 06/23/17 - Assessment and Plan (1) Pneumonia Status: Acute Qualifiers: Pneumonia type: due to unspecified organism Laterality: left Lung location: lower lobe of lung Qualified Code(s): J18.1 - Lobar pneumonia, unspecified organism Objective Vital Signs - Last 8 Hours Temp Pulse Resp BP Pulse Ox 06/24/17 16:19 18 95 06/24/17 14:19 94 06/24/17 13:52 96 06/24/17 13:30 98.4 F 92 18 125/81 95 06/24/17 12:30 98.5 F 80 18 116/76 94 06/24/17 11:30 98.2 F 84 18 143/87 92 06/24/17 11:22 18 91 06/24/17 11:00 98.5 F 83 18 119/78 92 06/24/17 10:30 98.7 F 67 18 120/79 92 06/24/17 10:22 100.9 F H 93 20 122/78 91 06/24/17 10:12 100.9 F H 82 20 126/75 91 06/24/17 10:02 86 20 131/78 90 06/24/17 09:52 88 20 138/81 91 06/24/17 09:42 101.1 F H 94 20 145/91 94 Intake and Output 06/24/17 06/24/17 06/24/17 07:59 15:59 23:59 Intake Total 1020 / 1020 1121 / 1121 Output Total 120 / 120 1625 / 1625 Balance 900 / 900 -504 / -504 Intake: IV Fluids 1020 / 1020 1121 / 1121 0.9 % Sodium Chloride 1,000 ML 1000 / 1000 861 / 861 @ 125 mls/hr IVC .Q8H [facility] Rx#: [id number] Merrem 1,000 MG In Water for inj. (sterile) 10 ML @ 200 mls/ hr IVP Q8H [facility] Rx#:[id number] Rocephin 1,000 MG In Water for inj. (sterile) 10 ML @ 300 mls/ hr IVP DAILY [facility] Rx#:[id number] Zithromax 500 mg In Dextrose 5% 250 / 250 250 ML @ 252 mls/hr IVPB Q24H [facility] Rx#:[id number] Oral 0 / 0 0 / 0 Output: Urine 100 / 100 1575 / 1575 Estimated Blood Loss 10 Wound Drainage Right Lower Abdomen Other: Meal NPO Percent of Meal Consumed 0% - Labs 06/24/17 04:34 06/24/17 04:34 Diabetes panel 06/24/17 Range/Units 04:34 Sodium 133 L (136-145) mEq/L Potassium 4.2 (3.5-5.1) mEq/L Chloride 103 (98-107) mEq/L Carbon Dioxide 21 L (23-29) mEq/L BUN 16 (8-23) mg/dL Creatinine 0.83 (0.70-1.30) mg/dL Glucose 106 H (70-105) mg/dL Calcium 8.5 L (8.6-10.3) mg/dL AST 10 L (13-39) Units/L ALT 10 (7-52) Units/L Alkaline Phosphatase 72 (34-104) Units/L Albumin 2.9 L (3.5-5.7) g/dL Calcium panel 06/24/17 Range/Units 04:34 Calcium 8.5 L (8.6-10.3) mg/dL Albumin 2.9 L (3.5-5.7) g/dL Pituitary panel 06/24/17 Range/Units 04:34 Sodium 133 L (136-145) mEq/L Potassium 4.2 (3.5-5.1) mEq/L Chloride 103 (98-107) mEq/L Carbon Dioxide 21 L (23-29) mEq/L BUN 16 (8-23) mg/dL Creatinine 0.83 (0.70-1.30) mg/dL Glucose 106 H (70-105) mg/dL Calcium 8.5 L (8.6-10.3) mg/dL Adrenal panel 06/24/17 Range/Units 04:34 Sodium 133 L (136-145) mEq/L Potassium 4.2 (3.5-5.1) mEq/L Chloride 103 (98-107) mEq/L Carbon Dioxide 21 L (23-29) mEq/L BUN 16 (8-23) mg/dL Creatinine 0.83 (0.70-1.30) mg/dL Glucose 106 H (70-105) mg/dL Calcium 8.5 L (8.6-10.3) mg/dL Total Bilirubin 0.7 (0.3-1.0) mg/dL AST 10 L (13-39) Units/L ALT 10 (7-52) Units/L Alkaline Phosphatase 72 (34-104) Units/L Albumin 2.9 L (3.5-5.7) g/dL - Attending Attestation The patient is seen and evaluated on morning rounds. Findings are discussed clinical nurse practitioner. The patient has had recurrent tachycardia and febrile episodes. He has documented pneumonia. We need to rule out intra- abdominal sepsis. I will order CAT scan of the abdomen and pelvis with further therapy based on these findings. Matthew Mcnair MD FACS
--- NOTE | 2017-06-23 17:42 | Event Note ---
Date of Encounter: 06/23/17 Time of Encounter: 17:38 1640: received call from [place] radiology regarding CTA of abdomen and pelvis with IV and oral contrast noting that patient has drain going through the descending colon, a new fluid collection at the right inferior tip of the liver measuring 6.9 x 2.2 cm, and remaining areas of fluid collection (see detailed report in chart). Reviewed findings with Dr. Mcnair. Patient will be added on the surgical schedule for diagnostic laparotomy, possible colon resection in the next 24-48 hours. Findings, recommendations, risks, and benefits were reviewed with patient and his . He is agreeable to proceed. Signed consent placed on hard chart. Did not give bowel prep in the setting of appearing as hard stool in the colon and this could be contributing to no leakage around the drain. Dr. Mcnair informed. :Pt is already on ATBX. he is instructed to be NPO at this time.
[2017-06-23] MEDS: Ipratropium/Albuterol Neb 3 ML IH SCH ×2 (19:18→19:40)
[2017-06-23] MEDS ORDERED: Fluticasone Propionate Nasal 50 MCG/SPRAY BOTTLE NS SCH (21:00)
[2017-06-23] MEDS: Loratadine 10 MG TABLET PO PRN (21:48)
[2017-06-24] MEDS: Ipratropium/Albuterol Neb 3 ML IH SCH ×7 (00:07→23:45)
[2017-06-24] MEDS: Meropenem 1,000 MG in Water for inj. (sterile) 20 ML 10 ML IVP SCH ×3 (03:16→20:26)
[2017-06-24] MEDS: OXYCODONE Oral CONC 10 MG/0.5 ML ORAL.SYG SL PRN (03:17)
[2017-06-24] MEDS: 0.9 % Sodium Chloride 1,000 ML IVC SCH ×3 (04:20→20:47)
[2017-06-24 04:47] LABS: Basophils # 0.1 K/mcL (0.0-0.2); Basophils % 0.4 %; Eosinophils # 0.3 K/mcL (0.0-0.6); Eosinophils % 1.8 %; Hematocrit 35.6 % (37.5-50.1); Hemoglobin 11.7 g/dL (12.9-16.9); Immature Granulocytes % 1.1 % (0-4); Lymphocytes # 1.5 K/mcL (0.6-4.6); Lymphocytes % 9.1 %; Mean Corpuscular HGB Conc 32.9 g/dL (31.6-35.5); Mean Corpuscular Hemoglobin 28.4 pg (28.0-33.3); Mean Corpuscular Volume 86.4 fL (83.0-100.0); Mean Platelet Volume 10.5 fL (9.4-12.4); Monocytes # 1.5 K/mcL (0.0-1.3); Neutrophils # 12.8 K/mcL (1.6-8.9); Platelet Count 207 K/mcL (140-400); Red Blood Count 4.12 M/mcL (4.19-5.50); Segmented Neutrophils % 78.6 %
[2017-06-24 05:11] LABS: Alanine Aminotransferase 10 Units/L (7-52); Albumin 2.9 g/dL (3.5-5.7); Albumin/Globulin Ratio 0.9 (1.1-2.2); Alkaline Phosphatase 72 Units/L (34-104); Aspartate Amino Transferase 10 Units/L (13-39); BUN/Creatinine Ratio 19 (6-26); Bilirubin,Total 0.7 mg/dL (0.3-1.0); Blood Urea Nitrogen 16 mg/dL (8-23); Calcium 8.5 mg/dL (8.6-10.3); Carbon Dioxide 21 mEq/L (23-29); Chloride 103 mEq/L (98-107); Globulin 3.1 g/dL (2.4-3.5); Glucose 106 mg/dL (70-105); Osmolality,Calculated 278 (280-300); Potassium 4.2 mEq/L (3.5-5.1); Sodium 133 mEq/L (136-145); eGFR For African Americans > 60 (> 60); eGFR For Non-African Americans > 60 (> 60)
[2017-06-24] MEDS ORDERED: Ondansetron 4 MG/2 ML VIAL ONE (07:49)
[2017-06-24] MEDS ORDERED: *HR* Rocuronium Bromide 50 MG/5 ML VIAL ONE (07:49)
[2017-06-24] MEDS ORDERED: Lidocaine -MPF 2% 2 ML VIAL ONE (07:49)
[2017-06-24] MEDS ORDERED: *HR* FentaNYL (PF) 100 MCG/2 ML VIAL ONE (07:50)
[2017-06-24] MEDS ORDERED: *HR* Midazolam HCl 2 MG/2 ML VIAL ONE (07:50)
[2017-06-24] MEDS ORDERED: *HR* Propofol 200 MG/20 ML VIAL IVP ONE (07:50)
[2017-06-24] MEDS: amLODIPine 5 MG TABLET PO SCH (07:51)
[2017-06-24] MEDS: cefTRIAXone 1,000 MG in Water for inj. (sterile) 20 ML 10 ML IVP SCH (07:51)
[2017-06-24] MEDS: Lisinopril 20 MG TABLET PO SCH (07:51)
[2017-06-24] MEDS ORDERED: Dexamethasone 4 MG/ML VIAL ONE (07:52)
[2017-06-24] MEDS ORDERED: Lidocaine -MPF 4% 5 ML AMPUL ONE (07:52)
--- NOTE | 2017-06-24 07:58 | Anesthesia Evaluation PreOp ---
Date of Encounter: 06/24/17 Time of Encounter: 08:30 - Past History Planned Operation: Diagnostic laparoscopy, poss bowel resection Cardiac History: HTN Pulmonary History: Other (Left pneumonia) COMPLETION MANAGER History: Denies Any Significant HX Other Medical History: GERD, Other (arthritis) Anesthesia History: No Prior Anesthetic Complications, Past Anesthesia ( cholecystectomy) Alcohol Use: none Drug use: none Medications and Allergies Amlodipine Besylate/Benazepril [Lotrel 10-20 mg Capsule] 1 tab PO DAILY [History] Meloxicam 15 mg PO DAILY 05/25/17 [History] Omeprazole [PriLOSEC] 20 mg PO DAILY 05/25/17 [History] Ciprofloxacin [Cipro] 500 mg PO BID #20 tablet 05/28/17 [Rx] metroNIDAZOLE [Flagyl] 500 mg PO TID #30 tablet 05/28/17 [Rx] 3 Allergy/AdvReac Type Severity Reaction Status Date / Time Penicillins Allergy Mild Rash Verified 05/25/17 00:38 - Meds/Allergy Pre-op Review Medications Reviewed: Yes Allergies Reviewed: Yes Beta Blockers on Current Med List: No Anesthesia Results - Labs 06/24/17 04:34 06/24/17 04:34 Anesthesia Exam Last Vital Signs Temp 98.2 F 06/24/17 03:59 Pulse 91 06/24/17 03:59 Resp 18 06/24/17 07:49 BP 170/88 06/24/17 03:59 Pulse Ox 89 06/24/17 07:49 Weight: 103 kg NPO (# of Hours): > 8 hrs - HEENT Pupil (Motor): Pupils equal, EOMI Mallampati: II Teeth: Normal Oral Opening: Greater than 3 - COMPLETION MANAGER LOC: Oriented - Cardiac Rhythm: Regular Murmur: None - Pulmonary Breath Sounds: bilateral Clear Respiratory Effort: Symmetrical Anesthesia Assess/Plan ASA Score: 2 Modified Catarina Scale for Level of Consciousness: Cooperative, oriented, and tranquil Anesthetic Plan: General Monitoring Plan: Standard Monitors Recovery Plan: PACU
[2017-06-24] MEDS ORDERED: cefOXitin 1,000 MG, 0.9 % Sodium Chloride 1,000 ML IR ONE ×2 (08:00→10:46)
[2017-06-24] MEDS: Fluconazole 100 MG TABLET PO SCH (08:04)
[2017-06-24] MEDS ORDERED: Lidocaine -MPF 0.5% 50 ML VIAL ONE (08:18)
[2017-06-24] MEDS ORDERED: Ketamine *HR* 500 MG/10 ML MDV ONE (08:22)
[2017-06-24] MEDS ORDERED: EPHEDrine 50 MG/ML VIAL ONE (08:28)
[2017-06-24] MEDS ORDERED: Acetaminophen IV 1,000 MG/100 ML INFUS..BTL ONE (08:30)
[2017-06-24] MEDS ORDERED: *HR* Vasopressin 20 UNIT/ML VIAL ONE (08:31)
--- NOTE | 2017-06-24 08:47 | General Surgery Progress Note ---
<Troy Mir - Last Filed: 06/24/17 08:31> Date of Encounter: 06/24/17 Time of Encounter: 07:30 - Assessment and Plan (1) Status post cholecystectomy Status: Acute POD 4 s/p robotic cholecystectomy with intraoperative cholangiogram, removal of peritoneal drains. WBC of 16.4 today. White blood count is trending down. CT of abdomen and pelvis on 06/23/17 report the followin.9 x 2.2 cm fluid collection containing air located inferior to the tip of the right hepatic lobe which is suspicious for abscess. A residual hypodensity above the gallbladder fossa measuring 2.8 x 1.8 cm could represent residual hepatic abscess. In addition, there is new scalloping of the posterior right hepatic lobe which could represent new intrahepatic abscesses. Per GARAGE ATTENDANT note, she received a call noting that patient also has drain going through the descending colon. Patient is scheduled for a diagnostic microscopy and possible bowel resection. NPO diet Continue G.I. prophylaxis pain control continue IV antibiotics Out of bed to chair and ambulate with assistance 3 times a day continue the GLORIA drain. Await return of bowel functions. (2) Pneumonia Status: Acute Chest x-ray 06/22/17 showed findings suggesting left lower lobe pneumonia. -Continue IV antibiotics: Azithromycin and ceftriaxone -Continue aggressive pulmonary toileting -IVF with NS at 75mL/hr -Pain control -Encourage patient to get out of the bed and into the chair at least 3 times a day. Qualifiers: Pneumonia type: due to unspecified organism Laterality: left Lung location: lower lobe of lung Qualified Code(s): J18.1 - Lobar pneumonia, unspecified organism (3) Perforated gallbladder Status: Acute POD 4 s/p robotic cholecystectomy with intraoperative cholangiogram. Patient tolerated procedure well. See plan as above. (4) Hepatic abscess Status: Acute Subjective Patient reports: no new complaints, feels better, still having pain, pain is less, flatus, no bowel movement, afebrile Narrative: The patient was seen and evaluated at bedside this morning. is at bedside. The patient was asleep but he was easily awaken. The patient was alert, afebrile, and appears in no acute distress. The patient stated that he did not fall asleep until 2-3am,so he admits he is tired. He verbalizes understanding of surgical intervention today. He denies any fever, headaches, vision changes, near syncope, chest pain, shortness of breath, difficulty breathing, changes in his bowel movements, urinary symptoms, nausea vomiting, numbness and tingling, and any other weaknesses. The patient admits he is still passing gas but has not had any bowel movements. Has no other concerns at this time. Objective Vital Signs - Last 8 Hours Temp Pulse Resp BP Pulse Ox 06/24/17 08:00 99.1 F 112 18 175/94 95 06/24/17 07:49 18 89 06/24/17 04:18 16 97 06/24/17 03:59 98.2 F 91 16 170/88 96 Intake and Output 06/23/17 06/24/17 06/24/17 23:59 07:59 15:59 Intake Total 260 / 260 1020 / 1020 460 / 460 Output Total 650 / 650 120 / 120 500 / 500 Balance -390 / -390 900 / 900 -40 / -40 Intake: IV Fluids 260 / 260 1020 / 1020 460 / 460 0.9 % Sodium Chloride 1,000 ML 1000 / 1000 460 / 460 @ 125 mls/hr IVC .Q8H KATHY Rx#: [id number] Merrem 1,000 MG In Water for 10 10 inj. (sterile) 10 ML @ 200 mls/ hr IVP Q8H KATHY Rx#:[id number] Rocephin 1,000 MG In Water for 10 inj. (sterile) 10 ML @ 300 mls/ hr IVP DAILY KATHY Rx#:[id number] Zithromax 500 mg In Dextrose 5% 250 / 250 250 ML @ 252 mls/hr IVPB Q24H KATHY Rx#:[id number] Oral 0 / 0 0 / 0 Output: Urine 650 / 650 100 / 100 500 / 500 Wound Drainage 20 / 20 Right Lower Abdomen 20 / 20 - General physical appearance well developed, well nourished, no distress - Eyes PERRL, normal ocular movement - ENT normal mucosa - Neck Neck exam: trachea midline - Respiratory normal expansion, normal respiratory effort, other (Decreased breath sounds in the left lower lobe.) - Cardiovascular Cardiovascular exam: Present: RRR, no murmurs/rubs/gallops - Abdomen Abdomen: Present: bowel sounds present, soft, tender (Appropriate post operative tenderness.), wound (GLORIA drain with serosanguious drainage with a tint of bilious drainage) - Incision Incision: Present: clean and dry, intact. Absent: draining, purulent - Integumentary no rash - Neurologic CN 2-12 grossly intact - Psychiatric oriented to time, oriented to person, oriented to place - Labs 06/24/17 04:34 06/24/17 04:34 Diabetes panel 06/24/17 Range/Units 04:34 Sodium 133 L (136-145) mEq/L Potassium 4.2 (3.5-5.1) mEq/L Chloride 103 (98-107) mEq/L Carbon Dioxide 21 L (23-29) mEq/L BUN 16 (8-23) mg/dL Creatinine 0.83 (0.70-1.30) mg/dL Glucose 106 H (70-105) mg/dL Calcium 8.5 L (8.6-10.3) mg/dL AST 10 L (13-39) Units/L ALT 10 (7-52) Units/L Alkaline Phosphatase 72 (34-104) Units/L Albumin 2.9 L (3.5-5.7) g/dL Calcium panel 06/24/17 Range/Units 04:34 Calcium 8.5 L (8.6-10.3) mg/dL Albumin 2.9 L (3.5-5.7) g/dL Pituitary panel 06/24/17 Range/Units 04:34 Sodium 133 L (136-145) mEq/L Potassium 4.2 (3.5-5.1) mEq/L Chloride 103 (98-107) mEq/L Carbon Dioxide 21 L (23-29) mEq/L BUN 16 (8-23) mg/dL Creatinine 0.83 (0.70-1.30) mg/dL Glucose 106 H (70-105) mg/dL Calcium 8.5 L (8.6-10.3) mg/dL Adrenal panel 06/24/17 Range/Units 04:34 Sodium 133 L (136-145) mEq/L Potassium 4.2 (3.5-5.1) mEq/L Chloride 103 (98-107) mEq/L Carbon Dioxide 21 L (23-29) mEq/L BUN 16 (8-23) mg/dL Creatinine 0.83 (0.70-1.30) mg/dL Glucose 106 H (70-105) mg/dL Calcium 8.5 L (8.6-10.3) mg/dL Total Bilirubin 0.7 (0.3-1.0) mg/dL AST 10 L (13-39) Units/L ALT 10 (7-52) Units/L Alkaline Phosphatase 72 (34-104) Units/L Albumin 2.9 L (3.5-5.7) g/dL - VTE Documentation of Mechanical Device: Intermittent pneumatic compression device Consult Discharge Plan - Plan Additional Instructions: Pain Narcotics are prescribed. 1-2 tabs every 6 hours. Please take with meals. DO NOT drive while taking narcotics. Activity As tolerated. However, I encourage you to limit heaving lifting and strenuous activity until evaluated in clinic. Diet As tolerated. Please start with liquids for the first 6 hours after surgery. Your meal after 6 hours can be a regular diet. Bowel Regimen As long as you are taking narcotics, please take the stool softner daily. Warnings If you experience significant redness around the incision or drainage from the incision that is purulent or malodorous, or you experience fevers, chills, or food intolerance (including nausea, vomiting, abdominal pain or distension), jaundice or yellow skin, eyes, tongue/cheek, or any symptoms you feel warrant evaluation, please call the office. If unable to reach the office, please go to nearest urgent care center or emergency department Referrals: Lissette Aguirre [Primary Care Provider] - Irene Howe DO [Family Provider] - Danielle Rangel, GARAGE ATTENDANT [Advanced Practice Nurse] - 07/04/17 10:20 am <Matthew Mcnair - Last Filed: 06/24/17 16:37> Date of Encounter: 06/24/17 - Assessment and Plan (1) Pneumonia Status: Acute Qualifiers: Pneumonia type: due to unspecified organism Laterality: left Lung location: lower lobe of lung Qualified Code(s): J18.1 - Lobar pneumonia, unspecified organism Objective Vital Signs - Last 8 Hours Temp Pulse Resp BP Pulse Ox 06/24/17 16:19 18 95 06/24/17 14:19 94 06/24/17 13:52 96 06/24/17 13:30 98.4 F 92 18 125/81 95 06/24/17 12:30 98.5 F 80 18 116/76 94 06/24/17 11:30 98.2 F 84 18 143/87 92 06/24/17 11:22 18 91 06/24/17 11:00 98.5 F 83 18 119/78 92 06/24/17 10:30 98.7 F 67 18 120/79 92 06/24/17 10:22 100.9 F H 93 20 122/78 91 06/24/17 10:12 100.9 F H 82 20 126/75 91 06/24/17 10:02 86 20 131/78 90 06/24/17 09:52 88 20 138/81 91 06/24/17 09:42 101.1 F H 94 20 145/91 94 Intake and Output 06/24/17 06/24/17 06/24/17 07:59 15:59 23:59 Intake Total 1020 / 1020 1121 / 1121 Output Total 120 / 120 1625 / 1625 Balance 900 / 900 -504 / -504 Intake: IV Fluids 1020 / 1020 1121 / 1121 0.9 % Sodium Chloride 1,000 ML 1000 / 1000 861 / 861 @ 125 mls/hr IVC .Q8H KATHY Rx#: [id number] Merrem 1,000 MG In Water for inj. (sterile) 10 ML @ 200 mls/ hr IVP Q8H KATHY Rx#:[id number] Rocephin 1,000 MG In Water for inj. (sterile) 10 ML @ 300 mls/ hr IVP DAILY KATHY Rx#:[id number] Zithromax 500 mg In Dextrose 5% 250 / 250 250 ML @ 252 mls/hr IVPB Q24H KATHY Rx#:[id number] Oral 0 / 0 0 / 0 Output: Urine 100 / 100 1575 / 1575 Estimated Blood Loss Wound Drainage 40 / 40 Right Lower Abdomen 40 40 Other: Meal NPO Percent of Meal Consumed 0% - Labs 06/24/17 04:34 06/24/17 04:34 Diabetes panel 06/24/17 Range/Units 04:34 Sodium 133 L (136-145) mEq/L Potassium 4.2 (3.5-5.1) mEq/L Chloride 103 (98-107) mEq/L Carbon Dioxide 21 L (23-29) mEq/L BUN 16 (8-23) mg/dL Creatinine 0.83 (0.70-1.30) mg/dL Glucose 106 H (70-105) mg/dL Calcium 8.5 L (8.6-10.3) mg/dL AST 10 L (13-39) Units/L ALT 10 (7-52) Units/L Alkaline Phosphatase 72 (34-104) Units/L Albumin 2.9 L (3.5-5.7) g/dL Calcium panel 06/24/17 Range/Units 04:34 Calcium 8.5 L (8.6-10.3) mg/dL Albumin 2.9 L (3.5-5.7) g/dL Pituitary panel 06/24/17 Range/Units 04:34 Sodium 133 L (136-145) mEq/L Potassium 4.2 (3.5-5.1) mEq/L Chloride 103 (98-107) mEq/L Carbon Dioxide 21 L (23-29) mEq/L BUN 16 (8-23) mg/dL Creatinine 0.83 (0.70-1.30) mg/dL Glucose 106 H (70-105) mg/dL Calcium 8.5 L (8.6-10.3) mg/dL Adrenal panel 06/24/17 Range/Units 04:34 Sodium 133 L (136-145) mEq/L Potassium 4.2 (3.5-5.1) mEq/L Chloride 103 (98-107) mEq/L Carbon Dioxide 21 L (23-29) mEq/L BUN 16 (8-23) mg/dL Creatinine 0.83 (0.70-1.30) mg/dL Glucose 106 H (70-105) mg/dL Calcium 8.5 L (8.6-10.3) mg/dL Total Bilirubin 0.7 (0.3-1.0) mg/dL AST 10 L (13-39) Units/L ALT 10 (7-52) Units/L Alkaline Phosphatase 72 (34-104) Units/L Albumin 2.9 L (3.5-5.7) g/dL - Attending Attestation The patient is seen and evaluated on morning rounds with the resident. I personally reviewed the CAT scan of the abdomen. I disagree with the CAT scan interpretation by the radiologist that the drain is going through the right colon. There is no reaction on the colon wall. However, the patient developed tachycardia and febrile episode. Intra-abdominal sepsis needs to be ruled out and in light of the CAT scan interpretation I think diagnostic laparoscopy is completely reasonable. We will proceed with diagnostic laparoscopy to evaluate the drain placement and to search for any signs of intra-abdominal sepsis. We will proceed on an urgent basis later today. Matthew Mcnair MD FACS
[2017-06-24] MEDS ORDERED: Neostigmine Methylsulfate 3 MG/3 ML SYRINGE ONE (09:18)
[2017-06-24] MEDS ORDERED: *HR* OxyCODONE Immed Rel 5 MG TABLET PO PRN (09:25)
[2017-06-24] MEDS ORDERED: *HR* Promethazine 25 MG/ML VIAL IVP PRN (09:25)
--- NOTE | 2017-06-24 09:27 | Operative Note ---
Date of procedure: 06/24/17 Pre-op diagnosis: Abnormal CAT scan of the abdomen, sepsis Post-op diagnosis: other (Normal postoperative intra-abdominal appearance with no evidence of abscess. No evidence of colon perforation) Procedure: Diagnostic laparoscopy and irrigation Anesthesia: KODY Surgeon: Matthew Mcnair Was there an assistant center director present: No Estimated blood loss (cc): 10 Specimen: None Condition: stable Disposition: PACU Procedure in Detail: We will contact by radiology that the intra-abdominal drain appears to have perforated the right colon. The patient does have tachycardia and febrile episodes as well as increasing blood cell count. He has pneumonia by chest x- ray and CT as well as clinical evidence. He now presents for diagnostic laparoscopy to rule out colon injury and to assess intra-abdominal sepsis. Next After informed consent and appropriate patient identification the patient is taking major operating suite placed in the supine position given adequate general endotracheal anesthesia. The abdomen is prepped and draped in sterile fashion utilizing Betadine solution and standard draping techniques. Timeout was taken and the patient was identified. Vertical midline incision above the umbilicus and dissected down the level of fascia. Fascia was opened and I visually and of the abdomen. I placed a Broderick trocar and insufflated to 15 mmHg pressure CO2. I placed 25 mm trochars. The drain was in perfect placement. The CAT scan appearance was because the drain tube was oriented in a haustral cleft. There was no colon perforation. I followed during along its entire course. There was no evidence of bowel perforation. I pulled the inflammatory adhesions off the area of cholecystectomy. There was no abscess in this area. I repositioned the drain into the subhepatic space. I examined the right gutter beside the liver. There is no evidence of abscess in this area this was postoperative inflammatory fluid. I irrigated the entire abdomen with copious amounts of antibiotic containing solution. All trochars were removed. The fascia was closed with interrupted 0 Vicryl. Skin was closed with skin mya. He tolerated the procedure well.
--- NOTE | 2017-06-24 10:23 | Anesthesia Evaluation Post Op ---
Date of Encounter: 06/24/17 Time of Encounter: 10:22 - Vital Signs Vital Signs: Vital Signs/O2 Sat, Most Current Temp Pulse Resp BP Pulse Ox 100.9 F H 82 20 126/75 91 06/24/17 10:12 06/24/17 10:12 06/24/17 10:12 06/24/17 10:12 06/24/17 10:12 - Lungs Lungs: Clear Ascult./Percussion - Airway Airway: Non-obstructed - Cardiovascular Regular Rate - Mental Status Mental Status: Alert & Oriented, Answers Appropriately - Pain Pain Scale: 3 Pain Scale used: Numeric (1 - 10) - Nausea Vomiting Nausea Vomiting: Not Present - Hydration Hydration: NPO, Has not voided Notes: 06/24/17 10:22 pt denies any complaints - Discharge PostOp Status: Transfer Patient to floor
[2017-06-24] MEDS ORDERED: Ibuprofen 600 MG TABLET PO PRN (10:46)
[2017-06-24] MEDS ORDERED: OXYCODONE Oral CONC 10 MG/0.5 ML ORAL.SYG SL PRN (10:46)
[2017-06-24] MEDS ORDERED: Ondansetron 4 MG/2 ML VIAL IVP PRN (10:46)
[2017-06-24] MEDS: *HR* OxyCODONE/APAP 5/325 TABLET PO PRN ×2 (11:24→17:56)
[2017-06-24] MEDS: Azithromycin 500 MG in D5% in Water 250 ML IVPB SCH (14:34)
[2017-06-24] MEDS: Loratadine 10 MG TABLET PO PRN (20:33)
[2017-06-24] MEDS: Fluticasone Propionate Nasal 50 MCG/SPRAY BOTTLE NS SCH (20:38)
[2017-06-25] MEDS: *HR* OxyCODONE/APAP 5/325 TABLET PO PRN ×4 (02:39→20:23)
[2017-06-25] MEDS: Meropenem 1,000 MG in Water for inj. (sterile) 20 ML 10 ML IVP SCH ×3 (04:27→20:22)
[2017-06-25] MEDS: Ipratropium/Albuterol Neb 3 ML IH SCH ×6 (04:36→23:03)
[2017-06-25 05:00] LABS: Basophils % 0.3 %; Hematocrit 32.5 % (37.5-50.1); Hemoglobin 10.4 g/dL (12.9-16.9); Immature Granulocytes % 1.1 % (0-4); Lymphocytes # 0.7 K/mcL (0.6-4.6); Lymphocytes % 6.2 %; Mean Corpuscular Hemoglobin 28.3 pg (28.0-33.3); Mean Corpuscular Volume 88.6 fL (83.0-100.0); Mean Platelet Volume 10.7 fL (9.4-12.4); Monocytes # 0.9 K/mcL (0.0-1.3); Monocytes % 7.8 %; Neutrophils # 9.4 K/mcL (1.6-8.9); Platelet Count 194 K/mcL (140-400); Red Blood Count 3.67 M/mcL (4.19-5.50); Red Cell Distribution Width 14.1 % (11.5-14.5); Segmented Neutrophils % 84.6 %
[2017-06-25 05:19] LABS: Alanine Aminotransferase 11 Units/L (7-52); Albumin 2.6 g/dL (3.5-5.7); Alkaline Phosphatase 77 Units/L (34-104); Aspartate Amino Transferase 13 Units/L (13-39); BUN/Creatinine Ratio 20 (6-26); Bilirubin,Total 0.4 mg/dL (0.3-1.0); Blood Urea Nitrogen 15 mg/dL (8-23); Calcium 8.2 mg/dL (8.6-10.3); Carbon Dioxide 24 mEq/L (23-29); Chloride 107 mEq/L (98-107); Globulin 2.6 g/dL (2.4-3.5); Glucose 178 mg/dL (70-105); Osmolality,Calculated 285 (280-300); Potassium 4.2 mEq/L (3.5-5.1); Sodium 135 mEq/L (136-145); Total Protein 5.2 g/dL (6.4-8.9); eGFR For African Americans > 60 (> 60); eGFR For Non-African Americans > 60 (> 60)
[2017-06-25] MEDS: 0.9 % Sodium Chloride 1,000 ML IVC SCH ×2 (06:23→14:36)
[2017-06-25] MEDS ORDERED: MOM Conc 10 ML UD.LIQ PO ONE (08:35)
[2017-06-25] MEDS ORDERED: cefTRIAXone 1,000 MG in Water for inj. (sterile) 20 ML 10 ML IVP SCH (09:00)
--- NOTE | 2017-06-25 09:03 | General Surgery Progress Note ---
<Hortencia Mir-Gale - Last Filed: 06/25/17 08:51> Date of Encounter: 06/25/17 Time of Encounter: 07:10 - Assessment and Plan (1) Status post cholecystectomy Status: Acute POD 5 s/p robotic cholecystectomy with intraoperative cholangiogram, removal of peritoneal drains. POD 1 s/p diagnostic laparoscopic. WBC of 11.1 today. White blood count is trending down. 06/24/17- CT of the abdomen and pelvis on 06/23/17 was interpreted by the radiologist and contacted surgery that the intra-abdominal drain appears to have perforated the right colon. Dr. Mcnair performed a diagnostic laparoscopic to further evaluate. Per operative note, the drain was in perfect placement. The CAT scan appearance was because the drain tube was oriented in a haustral cleft. There was no colon perforation. Advanced regular diet. Continue G.I. prophylaxis pain control continue IV antibiotics Out of bed to chair and ambulate with assistance 3 times a day continue the GLORIA drain. Await return of bowel functions. Plan for possible discharge tomorrow. (2) Pneumonia Status: Acute Chest x-ray 06/22/17 showed findings suggesting left lower lobe pneumonia. -Continue IV antibiotics: Azithromycin and meropenem -Continue aggressive pulmonary toileting -IVF with NS at 75mL/hr -Pain control -Encourage patient to get out of the bed and into the chair at least 3 times a day. Qualifiers: Pneumonia type: due to unspecified organism Laterality: left Lung location: lower lobe of lung Qualified Code(s): J18.1 - Lobar pneumonia, unspecified organism (3) Perforated gallbladder Status: Acute POD 5 s/p robotic cholecystectomy with intraoperative cholangiogram. Patient tolerated procedure well. See plan as above. (4) Hepatic abscess Status: Acute Subjective Patient reports: no new complaints, feels better, tolerating liquids well, flatus, no bowel movement, afebrile Narrative: Patient was seen and evaluated at bedside this morning. is at bedside. The patient is awake, alert, afebrile, and appears in no acute distress. The patient states that he feels great today. He also states that he "feels better after the surgery yesterday [diagnostic laparoscopy] than 3 days after my first surgery". Patient admits passing gas but denies any bowel movements. He believes he will have a bowel movement today. The patient will like a regular diet today. The patient denies any fever, headaches, vision changes, near syncope, chest pain, shortness of breath, cough, abdominal pain, urinary symptoms, nausea vomiting, and any weaknesses. The patient has no other concerns at this time. Objective Vital Signs - Last 8 Hours Temp Pulse Resp BP Pulse Ox 06/25/17 08:19 98.3 F 91 16 127/79 92 06/25/17 07:53 18 92 06/25/17 05:03 97.6 F 96 18 163/79 90 06/25/17 04:36 16 91 Intake and Output 06/24/17 06/25/17 06/25/17 23:59 07:59 15:59 Intake Total 1227 / 1227 1020 / 1020 0 / 0 Output Total 645 / 645 275 / 275 30 / Balance 582 / 582 745 / 745 -30 / -30 Intake: IV Fluids 627 / 627 1020 / 1020 0.9 % Sodium Chloride 1,000 ML 627 / 627 1000 / 1000 @ 125 mls/hr IVC .Q8H KATHY Rx#: [id number] Merrem 1,000 MG In Water for inj. (sterile) 10 ML @ 200 mls/ hr IVP Q8H KATHY Rx#:[id number] Oral 600 / 600 0 / 0 0 / 0 Output: Urine 600 / 600 275 / 275 Wound Drainage 45 / 45 30 / 30 Right Lower Abdomen 45 / 45 30 / 30 Other: Meal Dinner - General physical appearance well developed, well nourished, no distress - Eyes PERRL, normal ocular movement - ENT normal mucosa - Neck Neck exam: trachea midline - Respiratory normal expansion, normal respiratory effort, other (Decreased breast sounds in the left lower lobe. No wheezes, crackles, or rails.) - Cardiovascular Cardiovascular exam: Present: RRR, no murmurs/rubs/gallops - Abdomen Abdomen: Present: bowel sounds present, soft, tender (Minimal tenderness to palpation. Expected postoperative tenderness.), wound (GLORIA drain with serosanguious drainage) Hernia: none - Incision Incision: Present: clean and dry, intact. Absent: draining, purulent - Integumentary no rash - Neurologic CN 2-12 grossly intact - Psychiatric oriented to time, oriented to person, oriented to place - Labs 06/25/17 04:36 06/25/17 04:36 Diabetes panel 06/25/17 Range/Units 04:36 Sodium 135 L (136-145) mEq/L Potassium 4.2 (3.5-5.1) mEq/L Chloride 107 (98-107) mEq/L Carbon Dioxide 24 (23-29) mEq/L BUN 15 (8-23) mg/dL Creatinine 0.76 (0.70-1.30) mg/dL Glucose 178 H (70-105) mg/dL Calcium 8.2 L (8.6-10.3) mg/dL AST 13 (13-39) Units/L ALT 11 (7-52) Units/L Alkaline Phosphatase 77 (34-104) Units/L Albumin 2.6 L (3.5-5.7) g/dL Calcium panel 06/25/17 Range/Units 04:36 Calcium 8.2 L (8.6-10.3) mg/dL Albumin 2.6 L (3.5-5.7) g/dL Pituitary panel 06/25/17 Range/Units 04:36 Sodium 135 L (136-145) mEq/L Potassium 4.2 (3.5-5.1) mEq/L Chloride 107 (98-107) mEq/L Carbon Dioxide 24 (23-29) mEq/L BUN 15 (8-23) mg/dL Creatinine 0.76 (0.70-1.30) mg/dL Glucose 178 H (70-105) mg/dL Calcium 8.2 L (8.6-10.3) mg/dL Adrenal panel 06/25/17 Range/Units 04:36 Sodium 135 L (136-145) mEq/L Potassium 4.2 (3.5-5.1) mEq/L Chloride 107 (98-107) mEq/L Carbon Dioxide 24 (23-29) mEq/L BUN 15 (8-23) mg/dL Creatinine 0.76 (0.70-1.30) mg/dL Glucose 178 H (70-105) mg/dL Calcium 8.2 L (8.6-10.3) mg/dL Total Bilirubin 0.4 (0.3-1.0) mg/dL AST 13 (13-39) Units/L ALT 11 (7-52) Units/L Alkaline Phosphatase 77 (34-104) Units/L Albumin 2.6 L (3.5-5.7) g/dL - VTE Documentation of Mechanical Device: Intermittent pneumatic compression device Consult Discharge Plan - Plan Additional Instructions: Pain Narcotics are prescribed. 1-2 tabs every 6 hours. Please take with meals. DO NOT drive while taking narcotics. Activity As tolerated. However, I encourage you to limit heaving lifting and strenuous activity until evaluated in clinic. Diet As tolerated. Please start with liquids for the first 6 hours after surgery. Your meal after 6 hours can be a regular diet. Bowel Regimen As long as you are taking narcotics, please take the stool softner daily. Warnings If you experience significant redness around the incision or drainage from the incision that is purulent or malodorous, or you experience fevers, chills, or food intolerance (including nausea, vomiting, abdominal pain or distension), jaundice or yellow skin, eyes, tongue/cheek, or any symptoms you feel warrant evaluation, please call the office. If unable to reach the office, please go to nearest urgent care center or emergency department Referrals: Lissette Aguirre [Primary Care Provider] - Irene Howe DO [Family Provider] - Danielle Rangel, MATERIAL ASSEMBLER [Advanced Practice Nurse] - 07/04/17 10:20 am <Matthew Mcnair - Last Filed: 06/25/17 14:31> Date of Encounter: 06/25/17 - Assessment and Plan (1) Pneumonia Status: Acute Qualifiers: Pneumonia type: due to unspecified organism Laterality: left Lung location: lower lobe of lung Qualified Code(s): J18.1 - Lobar pneumonia, unspecified organism Objective Vital Signs - Last 8 Hours Temp Pulse Resp BP Pulse Ox 06/25/17 11:22 18 92 06/25/17 10:56 98.7 F 90 18 125/75 92 06/25/17 08:19 98.3 F 91 16 127/79 92 06/25/17 07:53 18 92 Intake and Output 06/24/17 06/25/17 06/25/17 23:59 07:59 15:59 Intake Total 1227 / 1227 1020 / 1020 1051 / 1051 Output Total 645 / 645 275 / 275 Balance 582 / 582 745 / 745 1021 / 1021 Intake: IV Fluids 627 / 627 1020 / 1020 811 / 811 0.9 % Sodium Chloride 1,000 ML 627 / 627 1000 / 1000 801 / 801 @ 125 mls/hr IVC .Q8H KATHY Rx#: [id number] Merrem 1,000 MG In Water for inj. (sterile) 10 ML @ 200 mls/ hr IVP Q8H KATHY Rx#:[id number] Oral 600 / 600 0 / 0 240 / 240 Output: Urine 600 / 600 275 / 275 0 / 0 Wound Drainage Right Lower Abdomen Other: Meal Dinner Breakfast Percent of Meal Consumed 90% - Labs 06/25/17 04:36 06/25/17 04:36 Diabetes panel 06/25/17 Range/Units 04:36 Sodium 135 L (136-145) mEq/L Potassium 4.2 (3.5-5.1) mEq/L Chloride 107 (98-107) mEq/L Carbon Dioxide 24 (23-29) mEq/L BUN 15 (8-23) mg/dL Creatinine 0.76 (0.70-1.30) mg/dL Glucose 178 H (70-105) mg/dL Calcium 8.2 L (8.6-10.3) mg/dL AST 13 (13-39) Units/L ALT 11 (7-52) Units/L Alkaline Phosphatase 77 (34-104) Units/L Albumin 2.6 L (3.5-5.7) g/dL Calcium panel 06/25/17 Range/Units 04:36 Calcium 8.2 L (8.6-10.3) mg/dL Albumin 2.6 L (3.5-5.7) g/dL Pituitary panel 06/25/17 Range/Units 04:36 Sodium 135 L (136-145) mEq/L Potassium 4.2 (3.5-5.1) mEq/L Chloride 107 (98-107) mEq/L Carbon Dioxide 24 (23-29) mEq/L BUN 15 (8-23) mg/dL Creatinine 0.76 (0.70-1.30) mg/dL Glucose 178 H (70-105) mg/dL Calcium 8.2 L (8.6-10.3) mg/dL Adrenal panel 06/25/17 Range/Units 04:36 Sodium 135 L (136-145) mEq/L Potassium 4.2 (3.5-5.1) mEq/L Chloride 107 (98-107) mEq/L Carbon Dioxide 24 (23-29) mEq/L BUN 15 (8-23) mg/dL Creatinine 0.76 (0.70-1.30) mg/dL Glucose 178 H (70-105) mg/dL Calcium 8.2 L (8.6-10.3) mg/dL Total Bilirubin 0.4 (0.3-1.0) mg/dL AST 13 (13-39) Units/L ALT 11 (7-52) Units/L Alkaline Phosphatase 77 (34-104) Units/L Albumin 2.6 L (3.5-5.7) g/dL - Attending Attestation I examined this patient and my medical decision-making was reviewed with the Resident Physician. I agree with the documented findings, disposition and treatment plan as described except to the extent set forth below. The patient is seen and evaluated on morning rounds with the resident. He feels much better. His white blood cell count has dropped to 11,500. He has no abdominal pain. 2 summarize, the patient had abnormal CAT scan with evidence of tachycardia febrile episodes and increasing white blood cell count. Diagnostic laparoscopy was performed to ensure that the drain was not through the right colon as was reported on the CAT scan evaluation. Diagnostic laparoscopy was negative for any intra-abdominal injury the drain was in excellent placement there is no evidence of intra-abdominal sepsis. Feels much better today and is hungry. We will advance his diet plan to discharge him tomorrow if possible. Matthew Mcnair MD FACS
[2017-06-25] MEDS: Fluconazole 100 MG TABLET PO SCH (09:06)
[2017-06-25] MEDS: Lisinopril 20 MG TABLET PO SCH (09:06)
[2017-06-25] MEDS: amLODIPine 5 MG TABLET PO SCH (09:07)
[2017-06-25] MEDS: Pantoprazole 40 MG VIAL IVP SCH (09:08)
[2017-06-25] MEDS: Azithromycin 500 MG in D5% in Water 250 ML IVPB SCH (14:37)
--- NOTE | 2017-06-25 19:13 | Electrocardiograph Report ---
[address] [place], [place] [address] Test Date: 2017-06-21 Pat Name: Chip Dotson Department: [id number] Room: 3A32 Gender: M Human Resources Operations Specialist: [id number] : 1950 Requested By: Matthew Mcnair Order Number: [id number] Reading MD: Migel Matos MD Measurements Intervals [place] Rate: 136 P: 39 KS: 150 QRS: -16 QRSD: 101 T: 37 QT: 371 QTc: 451 Interpretive Statements SINUS TACHYCARDIA WITH OCCASIONAL VENTRICULAR PREMATURE COMPLEXES Poor R wave progression Electronically Signed On 06-25-2017 19:12:04 EDT by Migel Matos MD
[2017-06-25] MEDS: Loratadine 10 MG TABLET PO PRN (20:31)
[2017-06-25] MEDS: Fluticasone Propionate Nasal 50 MCG/SPRAY BOTTLE NS SCH (23:56)
[2017-06-26] MEDS: 0.9 % Sodium Chloride 1,000 ML IVC SCH ×2 (00:01→10:15)
[2017-06-26] MEDS: *HR* OxyCODONE/APAP 5/325 TABLET PO PRN ×2 (00:23→06:36)
[2017-06-26] MEDS: Meropenem 1,000 MG in Water for inj. (sterile) 20 ML 10 ML IVP SCH (03:28)
[2017-06-26] MEDS: Ipratropium/Albuterol Neb 3 ML IH SCH ×3 (04:24→11:03)
[2017-06-26 06:35] VITALS: BP 148/94
--- NOTE | 2017-06-26 09:07 | Discharge Summary ---
<Troy Mir - Last Filed: 06/26/17 11:12> Date of Encounter: 06/26/17 Time of Encounter: 07:00 - Discharge Diagnosis (1) Status post cholecystectomy Priority: Primary Status: Acute (2) Pneumonia Priority: Secondary Status: Acute Qualifiers: Pneumonia type: due to unspecified organism Laterality: left Lung location: lower lobe of lung Qualified Code(s): J18.1 - Lobar pneumonia, unspecified organism (3) Perforated gallbladder Priority: Primary Status: Acute (4) Hepatic abscess Priority: Secondary Status: Acute General Surgery Exam Initial Vital Signs Temp Pulse Resp BP Pulse Ox 97.9 F 91 18 158/111 98 06/20/17 12:21 06/20/17 12:21 06/20/17 12:21 06/20/17 12:21 06/20/17 12:21 - General physical appearance well developed, well nourished, no distress - Eyes PERRL, normal ocular movement - ENT normal mucosa - Neck trachea midline - Respiratory normal expansion, normal respiratory effort, other (Decreased breast sounds in the lower lobes bilaterally.) - Cardiovascular Cardiovascular exam: Present: RRR, no murmurs/rubs/gallops - Abdomen Abdomen general surgery: Present: bowel sounds present, soft, tender (Minimal tenderness to palpation. Expected postoperative tenderness), wound (GLORIA drain with serosanguious drainage.) - Incision Incision: Present: clean and dry, intact. Absent: draining, erythema, purulent - Integumentary Integumentary general surgery: Present: warm and dry, no abnormal pigmentation. Absent: rash - Neurologic Present: CN 2-12 grossly intact - Psychiatric Psychiatric general surgery: Present: appropriate, oriented to person, oriented to place, oriented to time, speech is normal - Hospital Course Hospital course: Mr. Dotson is a 66 year old male postoperative day 6 status post robotic cholecystectomy with intraoperative cholangiogram and removal of peritoneal drains by Dr. Zohaib Garcia. Per operative note, gallbladder was severely inflamed and necrotic. The patient tolerated procedure well. Over the course of the hospitalization, the patient developed pneumonia, fever, leukocytosis, and tachycardia. Chest x-ray and CT of abdomen and pelvis was ordered to further evaluate. The chest x-ray on 06/22/2017 showed findings suggesting of left lower lobe pneumonia. CT of the abdomen and pelvis report stated that the proximal aspect of the right upper quadrant drainage catheter is penetrating the ascending colon and possible hepatic abscess. Due to the patient's tachycardia and febrile episode and new findings on CT scab, intra-abdominal sepsis needs to be ruled out and a diagnostic laparoscopy was recommended. Per diagnostic laparoscopy operative note on 06/24/2017, the drain was in perfect placement. The CAT scan appearance was because the drain tube was oriented in a haustral cleft. There was no colon perforation.There was no evidence of bowel perforation. Surgeon (Dr. Mcnair) repositioned the drain into the subhepatic space. The right gutter beside the liver was examined. There is no evidence of abscess in this area this was postoperative inflammatory fluid. The patient tolerated procedure well. Patient by of functions has returned. Patient tolerated regular diet without any nausea and vomiting. Patient has bowel movements with normal form stool without any blood. The patient denies any fever, headaches, vision changes, near syncope, chest pain, shortness of breath, difficulty breathing, blood in his stool, urinary symptoms , nausea vomiting, and any weaknesses. Patient was instructed to follow up with his/her primary care physician within one week. Patient was instructed to follow-up in the surgery outpatient clinic. Patient demonstrate verbal understanding. Patient has no other concerns at this time. - Time Spent with Patient Total time spent providing and/or coordinating discharge services: - Discharge Medications Prescriptions: OxyCODONE/APAP 10/325 [Percocet 10/325 MG] 1 each PO Q6HR PRN 6 Days #24 tablet PRN Reason: Pain Azithromycin [Zithromax Tri-Sawyer] 500 mg PO DAILY 3 Days #3 tablet Ciprofloxacin [Cipro] 500 mg PO BID 5 Days #10 tablet Docusate [Colace] 100 mg PO BID PRN #30 capsule PRN Reason: Constipation Fluconazole [Diflucan] 150 mg PO DAILY 3 Days #3 tablet Promethazine HCl 12.5 mg PO Q6-8H PRN #30 tablet PRN Reason: Nausea And Vomiting Home Medications: Amlodipine Besylate/Benazepril [Lotrel 10-20 mg Capsule] 1 tab PO DAILY [History] Meloxicam 15 mg PO DAILY 05/25/17 [History] Omeprazole [PriLOSEC] 20 mg PO DAILY 05/25/17 [History] Azithromycin [Zithromax Tri-Sawyer] 500 mg PO DAILY 3 Days #3 tablet 06/26/17 [Rx] Ciprofloxacin [Cipro] 500 mg PO BID 5 Days #10 tablet 06/26/17 [Rx] Docusate [Colace] 100 mg PO BID PRN #30 capsule 06/26/17 [Rx] Fluconazole [Diflucan] 150 mg PO DAILY 3 Days #3 tablet 06/26/17 [Rx] OxyCODONE/APAP 10/325 [Percocet 10/325 MG] 1 each PO Q6HR PRN 6 Days #24 tablet 06/26/17 [Rx] Promethazine HCl 12.5 mg PO Q6-8H PRN #30 tablet 06/26/17 [Rx] Allergies/Adverse Reactions: 3 Allergy/AdvReac Type Severity Reaction Status Date / Time Penicillins Allergy Mild Rash Verified 05/25/17 00:38 Date of admission: 06/20/17 17:30 Primary care physician: Lissette Aguirre Discharging clinician: Troy Mir Anticipated date of discharge: 06/26/17 - Impressions ITS Impressions Chest X-Ray 06/22/17 11:07 IMPRESSION: Findings suggest left lower lobe pneumonia. D/ / Jorge Hurley MD / Jorge Hurley MD Interpreting Provider: Jorge Hurley MD Abdomen/Pelvis CT 06/23/17 14:45 IMPRESSION: 1. Proximal aspect of the right upper quadrant drainage catheter is penetrating the ascending colon. 2. Interval cholecystectomy. Phlegmonous changes within the gallbladder fossa are likely postsurgical. New from the prior CT, there is a 6.9 x 2.2 cm fluid collection containing air located inferior to the tip of the right hepatic lobe which is suspicious for abscess. 3. Previously seen hepatic drainage catheter has been removed. A residual hypodensity above the gallbladder fossa measuring 2.8 x 1.8 cm could represent residual hepatic abscess. In addition, there is new scalloping of the posterior right hepatic lobe which could represent new intrahepatic abscesses. 4. Partial collapse of the right lower lobe due to consolidation which could represent pneumonia. Small pleural effusions, right greater than left. Findings were given to DENA Rangel on 06/23/2017 at 4:35 PM. D/ / Aquilino Louis MD / Aquilino Louis MD Interpreting Provider: Aquilino Louis MD - Patient Status Disposition: Home, Self-Care Condition: Good Functional capacity at discharge: independent ambulation Overall status at discharge: patient is progressing back to baseline - Discharge Instructions Instructions: Nico-Guevara Drain Care (DC), Laparoscopic Cholecystectomy (DC) , Bacterial Pneumonia (DC) Follow Up With: Danielle Rangel UX DESIGN MANAGER [Advanced Practice Nurse] - 07/04/17 10:20 am Additional Instructions: Pain Narcotics are prescribed. 1-2 tabs every 6 hours. Please take with meals. DO NOT drive while taking narcotics. Activity As tolerated. However, I encourage you to limit heaving lifting and strenuous activity until evaluated in clinic. Diet As tolerated. Please start with liquids for the first 6 hours after surgery. Your meal after 6 hours can be a regular diet. Bowel Regimen As long as you are taking narcotics, please take the stool softner daily. Warnings If you experience significant redness around the incision or drainage from the incision that is purulent or malodorous, or you experience fevers, chills, or food intolerance (including nausea, vomiting, abdominal pain or distension), jaundice or yellow skin, eyes, tongue/cheek, or any symptoms you feel warrant evaluation, please call the office. If unable to reach the office, please go to nearest urgent care center or emergency department - Diet and Activity Activity: increase activity as tolerated Diet: advance to your usual diet <Matthew Mcnair - Last Filed: 06/27/17 12:07> Date of Encounter: 06/26/17 - Discharge Diagnosis (1) Pneumonia Status: Acute Qualifiers: Pneumonia type: due to unspecified organism Laterality: left Lung location: lower lobe of lung Qualified Code(s): J18.1 - Lobar pneumonia, unspecified organism General Surgery Exam Initial Vital Signs Temp Pulse Resp BP Pulse Ox 97.9 F 91 18 158/111 98 06/20/17 12:21 06/20/17 12:21 06/20/17 12:21 06/20/17 12:21 06/20/17 12:21 - Hospital Course Hospital course: Mr. Dotson is a 66 year old male - Time Spent with Patient Total time spent providing and/or coordinating discharge services: Date of admission: 06/20/17 17:30 Primary care physician: Lissette Aguirre - Impressions ITS Impressions Chest X-Ray 06/22/17 11:07 IMPRESSION: Findings suggest left lower lobe pneumonia. D/ / Jorge Hurley MD / Jorge Hurley MD Interpreting Provider: Jorge Hurley MD Abdomen/Pelvis CT 06/23/17 14:45 IMPRESSION: 1. Proximal aspect of the right upper quadrant drainage catheter is penetrating the ascending colon. 2. Interval cholecystectomy. Phlegmonous changes within the gallbladder fossa are likely postsurgical. New from the prior CT, there is a 6.9 x 2.2 cm fluid collection containing air located inferior to the tip of the right hepatic lobe which is suspicious for abscess. 3. Previously seen hepatic drainage catheter has been removed. A residual hypodensity above the gallbladder fossa measuring 2.8 x 1.8 cm could represent residual hepatic abscess. In addition, there is new scalloping of the posterior right hepatic lobe which could represent new intrahepatic abscesses. 4. Partial collapse of the right lower lobe due to consolidation which could represent pneumonia. Small pleural effusions, right greater than left. Findings were given to DENA Rangel on 06/23/2017 at 4:35 PM. D/ / Aquilino Louis MD / Aquilino Louis MD Interpreting Provider: Aquilino Louis MD - Attending Attestation I examined this patient and my medical decision-making was reviewed with the Resident Physician. I agree with the documented findings, disposition and treatment plan as described except to the extent set forth below. The patient is seen and evaluated on morning rounds with the resident. He is pain-free and his white blood cell count has returned to normal. He is ready for discharge. Findings discussed with the clinical nurse practitioner. Matthew Mcnair MD FACS
[2017-06-26] MEDS ORDERED: Azithromycin 250 MG TABLET PO ONE (09:19)
[2017-06-26] MEDS: Fluconazole 100 MG TABLET PO SCH (10:05)
[2017-06-26] MEDS: amLODIPine 5 MG TABLET PO SCH (10:05)
[2017-06-26] MEDS: Pantoprazole 40 MG VIAL IVP SCH (10:06)
[2017-06-26] MEDS: Lisinopril 20 MG TABLET PO SCH (10:07)
== END 2017-06-26 11:40 | disposition home or self-care (01) ==
LOC: 3ANU 12:08 → SAMDAY 12:08 → 3ANU 17:02
PROVIDERS: ADMIT Surgery; ATTEND Surgery